=== PATIENT | female | born 1935 | race African-American/Black ===

== ENCOUNTER 2016-08-01 10:57 | Emergency (ER) | payer MEDICARE ==
[~2016-08-01] VITALS: Ht 157.5 cm; Wt 49.9 kg
[~2016-08-01 10:57] MED LIST: ACET1TAB30 PO; ACET325T21 PO; ACYC200C PO; ALEN70TA5 PO; ALIS300T PO; AMLO10TA4 PO; ASPI325T4 PO; ATOR40TA PO; BUDE10.2 IH; BUTA1CAP57 PO; CARI350T PO; CARV25TA PO; CHOL200044 PO; CLON0.1T PO; CLOR7.5T43 PO; FLUT16SP NS; HYDR-2666 PO; HYDR-2868 PO; LOSA100T2 PO; MAGN250T5 PO; PROAIR HFA8.5 GM INH; SITA100T PO; SPIR50TA PO; TRIA1TAB2 PO
--- NOTE | 2016-08-01 13:10 | PHYS DOC ---
Past Medical History Past Medical History: Asthma, Diabetes-Type II, High Cholesterol, Hypertension Past Surgical History: Hysterectomy, Other Additional Past Surgical Histo: carotid artery, cyst removed from left breast Alcohol Use: None Drug Use: None Adult General Chief Complaint Chief Complaint: LOWER BACK PAIN OR INJURY HPI HPI Patient is a 81 year old female who presents with complaint of low back pain. Patient states that her symptoms started after she attempted to lift a mattress 3 days ago at her home. Patient states that she felt a "tweaked" in her back upon lifting. Patient states that initially her pain was mild to moderate, however over the past 2-3 days her symptoms have progressed, resulting in 10 out of 10 pain currently in her low back. Patient states that she has remained ambulatory though she is only able to walk short distances in her home. The patient has taken Advil and Tylenol for her symptoms with minimal relief. Patient denies any weakness or numbness in her lower extremities. Patient states that the pain is sharp and worsens with movement. Patient denies any previous history of back injuries. Review of Systems Review of Systems Constitutional: Denies fever or chills [] Eyes: Denies change in visual acuity, redness, or eye pain [] HENT: Denies nasal congestion or sore throat [] Respiratory: Denies cough or shortness of breath [] Cardiovascular: Denies chest pain or edema [] GI: Denies abdominal pain, nausea, vomiting, bloody stools or diarrhea [] : Denies dysuria or hematuria [] Musculoskeletal: Back pain [] Integument: Denies rash or skin lesions [] Neurologic: Denies headache, focal weakness or sensory changes [] Endocrine: Denies polyuria or polydipsia [] Current Medications Current Medications Current Medications Medications (Trade) Dose Ordered Sig/[facility] Start Time Stop Time Status Last Admin Dose Admin Acetaminophen/ Hydrocodone Bitart (Lortab 5/325) 1 tab 1X ONCE 08/01/16 13:15 08/01/16 13:16 DC 08/01/16 13:42 1 TAB Allergies Allergies Allergies Coded Allergies Type Severity Reaction Last Updated Verified lisinopril Allergy Mild cough 10/18/13 Yes Physical Exam Physical Exam Constitutional: Alert, afebrile, appears in mild to moderate discomfort. [] HENT: Normocephalic, atraumatic, bilateral external ears normal, oropharynx moist, no oral exudates, nose normal. [] Eyes: PERRLA, EOMI, conjunctiva normal, no discharge. [] Neck: Normal range of motion, no tenderness, supple, no stridor. [] Cardiovascular:Heart rate regular rhythm, no murmur [] Lungs & Thorax: Bilateral breath sounds clear to auscultation [] Abdomen: Bowel sounds normal, soft, no tenderness, no masses, no pulsatile masses. [] Skin: Warm, dry, no erythema, no rash. [] Back: Lower lumbar midline tenderness to palpation, bilateral lower lumbar paraspinous muscle tenderness to palpation, negative straight leg test, no flank ecchymosis. [] Extremities: No tenderness, no cyanosis, no clubbing, ROM intact, no edema. [] Neurologic: Alert and oriented X 3, normal motor function, normal sensory function, no focal deficits noted. [] Current Patient Data Vital Signs Vital Signs Date Time Temp Pulse Resp B/P Pulse Ox O2 Delivery O2 Flow Rate FiO2 08/01/16 13:42 20 98 Room Air 08/01/16 13:38 62 170/67 08/01/16 12:08 98.5 98.5 Lab Values Laboratory Tests Test 08/01/16 13:00 Urine Collection Type Void Urine Color Yellow Urine Clarity Cloudy Urine pH 6.5 Urine Specific [place] 1.010 Urine Protein Negativemg/dL (NEG-TRACE) Urine Glucose (UA) 250mg/dL (NEG) Urine Ketones (Stick) Negativemg/dL (NEG) Urine Blood Negative (NEG) Urine Nitrite Negative (NEG) Urine Bilirubin Negative (NEG) Urine Urobilinogen Dipstick 0.2mg/dL (0.2 mg/dL) Urine Leukocyte Esterase Negative (NEG) Urine RBC 0/HPF (0-2) Urine WBC 0/HPF (0-4) Urine Squamous Epithelial Cells Mod/LPF Urine Bacteria 0/HPF (0-FEW) Urine Mucus Slight/LPF EKG EKG Not performed [] Radiology/Procedures Radiology/Procedures [facility] [address] [place] [address] IMAGING REPORT Signed PATIENT: DEENA ASHTON ACCOUNT: [id number] : 1935 LOCATION: ER AGE: 81 SEX: F EXAM STATUS: REG ER ORD. PHYSICIAN: ANNETTE ORR MD REASON: low back injury 2 days ago PROCEDURE: LUMBAR SPINE 2-3V Three-view lumbar spine radiographs 08/01/2016 Clinical history: Low back pain since injury 3 days ago while lifting a mattress. AP and 2 lateral digital radiographs of the lumbar spine were obtained. There is diffuse osteopenia of the visualized bony structures. Very mild S-shaped curvature of the thoracolumbar spine is seen. No fracture or subluxation lumbar vertebrae seen. Degenerative changes consisting of vertebral endplate sclerosis and minimal anterior vertebral body osteophyte formation are seen involving the lumbar disc spaces. Degenerative changes are seen involving the facet joints of the mid and lower lumbar spine. Extensive atherosclerotic calcification of the abdominal aorta and its branches is noted. A 1.5 cm rounded calcification overlies right upper quadrant of the abdomen which may reflect the calcified gallstone. Impression: Degenerative changes are seen in the lumbar spine as outlined above. No acute fracture or subluxation is seen. DICTATED and SIGNED BY: FERNIE DAN MD DATE: 08/01/16 1400 CC: ANNETTE ORR MD; ARETHA NEFF MD ~ [] Course & Med Decision Making Course & Med Decision Making Pertinent Labs and Imaging studies reviewed. (See chart for details) Patient was given Olar in the emergency department. Patient's x-rays were negative for acute fracture. The patient's symptoms are consistent with lower lumbar sprain versus lower lumbar muscle strain. The patient will continue on Olar. Recommended continued use of [id number] Advil one tablet every 6 hours. Advised not to use any additional Tylenol while taking Olar. Recommended follow-up in one week with Dr. Neff for reevaluation and recommended return to the emergency department for any worsening symptoms. Patient voiced understanding and in agreement with treatment plan. Dragon Disclaimer Dragon Disclaimer This electronic medical record was generated, in whole or in part, using a voice recognition dictation system. Departure Departure Impression: Primary Impression: Injury of low back Disposition: 01 HOME, SELF-CARE Condition: IMPROVED Referrals: ARETHA NEFF MD (PCP) Patient Instructions: Back Pain, Adult Additional Instructions: Follow-up with Dr. Neff in one week. Do not take any additional over-the- counter Tylenol while you are taking Olar for pain. You may take Advil one tablet every 6 hours as needed for pain. Return to the emergency department for any worsening symptoms. Scripts Hydrocodone/Apap 5-325 (Olar 5-325 Tablet)1 Each Tablet1 Tab PO Q6HRS PRN PAIN #15 TAB Prov:ANNETTE ORR MD 08/01/16 Problem Qualifiers Primary Impression: Injury of low back Encounter type: initial encounter Qualified Code: S39.92XA - Unspecified injury of lower back, initial encounter ANNETTE ORR MD Aug 01, 2016 13:10
[2016-08-01 13:30] LABS: BILIRUBIN,URINE NEGATIVE (NEG); GLUCOSE,URINE 250 mg/dL (NEG); NITRITE,URINE NEGATIVE (NEG); PH,URINE 6.5; PROTEIN,URINE NEGATIVE (NEG-TRACE); UROBILINOGEN,URINE 0.2 mg/dL (0.2 mg/dL)
[2016-08-01 13:40] LABS: BACTERIA,URINE 0 /HPF (0-FEW); RBC,URINE 0 /HPF (0-2); SQUAMOUS EPITHELIAL CELL,UR MOD /LPF; WBC,URINE 0 /HPF (0-4)
[2016-08-01] MEDS: HYDROCODONE/APAP 5/325MG TABLET. PO ONE (13:42)
--- NOTE | 2016-08-01 14:05 | RAD ---
Three-view lumbar spine radiographs 08/01/2016 Clinical history: Low back pain since injury 3 days ago while lifting a mattress. AP and 2 lateral digital radiographs of the lumbar spine were obtained. There is diffuse osteopenia of the visualized bony structures. Very mild S-shaped curvature of the thoracolumbar spine is seen. No fracture or subluxation lumbar vertebrae seen. Degenerative changes consisting of vertebral endplate sclerosis and minimal anterior vertebral body osteophyte formation are seen involving the lumbar disc spaces. Degenerative changes are seen involving the facet joints of the mid and lower lumbar spine. Extensive atherosclerotic calcification of the abdominal aorta and its branches is noted. A 1.5 cm rounded calcification overlies right upper quadrant of the abdomen which may reflect the calcified gallstone. Impression: Degenerative changes are seen in the lumbar spine as outlined above. No acute fracture or subluxation is seen.
[2016-08-01] MEDS ORDERED: HYDR-971 PO (14:57)
[2016-08-01 15:08] VITALS: BP 156/69
== END 2016-08-01 15:32 | disposition home or self-care (01) ==
LOC: ER 10:57
DX: S39.92XA Unspecified injury of lower back, initial encounter (principal); E11.9 Type 2 diabetes mellitus without complications; E78.00 Pure hypercholesterolemia, unspecified; I10 Essential (primary) hypertension; J45.909 Unspecified asthma, uncomplicated; Z90.710 Acquired absence of both cervix and uterus; Z88.8 Allergy status to other drugs, medicaments and biological substances; X58.XXXA Exposure to other specified factors, initial encounter; Y93.89 Activity, other specified; Y92.89 Other specified places as the place of occurrence of the external cause; Y99.8 Other external cause status
CPT/HCPCS: 72100; 81001; 99285-25

== ENCOUNTER 2016-08-11 20:45 | Emergency (ER) | payer MEDICARE ==
[~2016-08-11] VITALS: Ht 157.5 cm; Wt 49.9 kg
[~2016-08-11 20:45] MED LIST changes: +HYDR-971 PO
[2016-08-11 21:22] LABS: BILIRUBIN,URINE NEGATIVE (NEG); GLUCOSE,URINE 500 mg/dL (NEG); NITRITE,URINE NEGATIVE (NEG); PH,URINE 6.5; PROTEIN,URINE NEGATIVE (NEG-TRACE); UROBILINOGEN,URINE 0.2 mg/dL (0.2 mg/dL)
[2016-08-11 21:26] LABS: BASO # 0.1 x10^3/uL (0.0-0.2); BASO % 1 % (0-3); EOS % 6 % (0-3); HEMATOCRIT 33.7 % (36.0-47.0); HEMOGLOBIN 11.2 g/dL (12.0-15.5); LYMPH % 35 % (24-48); MEAN CORPUSCULAR HEMOGLOBIN 30 pg (25-35); MEAN CORPUSCULAR HGB CONC 33 g/dL (31-37); MEAN CORPUSCULAR VOLUME 91 fL (79-100); MONO % 8 % (0-9); NEUT % 50 % (31-73); PLATELET COUNT 144 x10^3/uL (140-400); RED BLOOD COUNT 3.69 x10^6/uL (3.50-5.40); RED CELL DISTRIBUTION WIDTH 13.6 % (11.5-14.5); WHITE BLOOD COUNT 5.6 x10^3/uL (4.0-11.0)
[2016-08-11 21:31] LABS: BACTERIA,URINE 0 /HPF (0-FEW); RBC,URINE OCC /HPF (0-2); SQUAMOUS EPITHELIAL CELL,UR OCC /LPF; WBC,URINE 0 /HPF (0-4)
[2016-08-11 21:50] LABS: ALBUMIN 3.9 g/dL (3.4-5.0); CALCIUM 9.9 mg/dL (8.5-10.1); CREATININE 1.1 mg/dL (0.6-1.0); DIRECT BILIRUBIN 0.1 mg/dL (0.0-0.2); GFR 57.4; POTASSIUM 3.5 mmol/L (3.5-5.1); TOTAL BILIRUBIN 0.3 mg/dL (0.2-1.0); TOTAL PROTEIN 7.8 g/dL (6.4-8.2)
--- NOTE | 2016-08-11 22:11 | PHYS DOC ---
Past Medical History Past Medical History: Asthma, Diabetes-Type II, High Cholesterol, Hypertension Past Surgical History: Hysterectomy, Other Additional Past Surgical Histo: carotid artery, cyst removed from left breast Alcohol Use: None Drug Use: None Adult General Chief Complaint Chief Complaint: HYPERGLYCEMIA HPI HPI 81-year-old female presenting to the emergency department today with generalized weakness intermittent confusion lightheadedness when she stands up. She felt like her blood sugar was low however when they checked it it was approximately 300. She denies chest pain shortness of breath nausea or vomiting. She denies polyuria or polydipsia. Her main complaint is generalized weakness. Nothing makes it worse or better. No specific timing. Nonradiating. The patient's family reports the patient is been taking frequent pain medications for her chronic hip pain and muscle relaxants. They report that at the initiation of her new muscle relaxant she began becoming more lightheaded and intermittently confused. Review of systems is negative for chest pain shortness of breath abdominal pain nausea vomiting diarrhea. She denies fevers or chills. All other review of systems is negative unless otherwise noted in history of present illness. Review of Systems Review of Systems SEE ABOVE. Allergies Allergies Allergies Coded Allergies Type Severity Reaction Last Updated Verified lisinopril Allergy Mild cough 10/18/13 Yes Physical Exam Physical Exam Constitutional: Well developed, well nourished, no acute distress, non-toxic appearance. HENT: Normocephalic, atraumatic, bilateral external ears normal, oropharynx moist, no oral exudates, nose normal. [] Eyes: PERRLA, EOMI, conjunctiva normal, no discharge. [] Neck: Normal range of motion, no tenderness, supple, no stridor. Cardiovascular:Heart rate regular rhythm, no murmur [] Lungs & Thorax: Bilateral breath sounds clear to auscultation Abdomen: Bowel sounds normal, soft, no tenderness, no masses, no pulsatile masses. [] Skin: Warm, dry, no erythema, no rash. Back: No tenderness, no CVA tenderness. [] Extremities: No tenderness, no cyanosis, no clubbing, ROM intact, no edema. [] Neurologic: Mental status: Awake oriented and alert x3 Cranial nerves: Extraocular movements intact, eyebrows michelle bilaterally smile symmetric, uvula elevation, shoulder shrug intact, tongue protrusion normal Sensation: equal and normal in all extremities Strength: 5/5 in upper and lower extremities bilaterally Psychologic: Affect normal, judgement normal, mood normal. [] Current Patient Data Vital Signs Vital Signs Date Time Temp Pulse Resp B/P Pulse Ox O2 Delivery O2 Flow Rate FiO2 08/11/16 22:12 64 16 143/65 99 Room Air 08/11/16 20:54 97.3 97.3 Lab Values Laboratory Tests Test 08/11/16 21:00 08/11/16 21:10 08/11/16 21:17 Urine Collection Type Unknown Urine Color Yellow Urine Clarity Clear Urine pH 6.5 Urine Specific [place] <=1.005 Urine Protein Negativemg/dL (NEG-TRACE) Urine Glucose (UA) 500mg/dL (NEG) Urine Ketones (Stick) Negativemg/dL (NEG) Urine Blood Negative (NEG) Urine Nitrite Negative (NEG) Urine Bilirubin Negative (NEG) Urine Urobilinogen Dipstick 0.2mg/dL (0.2 mg/dL) Urine Leukocyte Esterase Negative (NEG) Urine RBC Occ/HPF (0-2) Urine WBC 0/HPF (0-4) Urine Squamous Epithelial Cells Occ/LPF Urine Bacteria 0/HPF (0-FEW) White Blood Count 5.6x10^3/uL (4.0-11.0) Red Blood Count 3.69x10^6/uL (3.50-5.40) Hemoglobin 11.2g/dL (12.0-15.5) L Hematocrit 33.7% (36.0-47.0) L Mean Corpuscular Volume 91fL (79-100) Mean Corpuscular Hemoglobin 30pg (25-35) Mean Corpuscular Hemoglobin Concent 33g/dL (31-37) Red Cell Distribution Width 13.6% (11.5-14.5) Platelet Count 144x10^3/uL (140-400) Neutrophils (%) (Auto) 50% (31-73) Lymphocytes (%) (Auto) 35% (24-48) Monocytes (%) (Auto) 8% (0-9) Eosinophils (%) (Auto) 6% (0-3) H Basophils (%) (Auto) 1% (0-3) Neutrophils # (Auto) 2.8x10^3uL (1.8-7.7) Lymphocytes # (Auto) 2.0x10^3/uL (1.0-4.8) Monocytes # (Auto) 0.4x10^3/uL (0.0-1.1) Eosinophils # (Auto) 0.3x10^3/uL (0.0-0.7) Basophils # (Auto) 0.1x10^3/uL (0.0-0.2) Sodium Level 142mmol/L (136-145) Potassium Level 3.5mmol/L (3.5-5.1) Chloride Level 101mmol/L (98-107) Carbon Dioxide Level 33mmol/L (21-32) H Anion Gap 8 (6-14) Blood Urea Nitrogen 21mg/dL (7-20) H Creatinine 1.1mg/dL (0.6-1.0) H Estimated GFR (Cockcroft-Gault) 57.4 Glucose Level 284mg/dL (70-99) H Serum Osmolality 301mOsm/Kg (279-304) Lactic Acid Level 1.4mmol/L (0.4-2.0) Calcium Level 9.9mg/dL (8.5-10.1) Total Bilirubin 0.3mg/dL (0.2-1.0) Direct Bilirubin 0.1mg/dL (0.0-0.2) Aspartate Amino Transferase (AST) 28U/L (15-37) Alanine Aminotransferase (ALT) 28U/L (14-59) Alkaline Phosphatase 83U/L (46-116) Troponin I Quantitative < 0.017ng/mL (0.000-0.055) Total Protein 7.8g/dL (6.4-8.2) Albumin 3.9g/dL (3.4-5.0) Lipase 238U/L (73-393) Glucose (Fingerstick) 272mg/dL (70-99) H Laboratory Tests 08/11/16 21:10 Laboratory Tests 08/11/16 21:10 EKG EKG EKG shows sinus rhythm not suggestive of ischemia. [] Radiology/Procedures Radiology/Procedures Chest x-ray reviewed by myself shows no obvious infiltrate or pneumothorax present. No obvious acute cardiopulmonary process present.[] Course & Med Decision Making Course & Med Decision Making Pertinent Labs and Imaging studies reviewed. (See chart for details) [] 81-year-old female presenting to the emergency department today with generalized weakness. Triage vital signs afebrile normal heart rate.. Pertinent physical exam shows a pleasant elderly female without any focal deficits. Patient is oriented to person place and time. GCS 15. Nontender abdomen. Well- appearing. EKG obtained. Chest x-ray obtained. CBC shows mild anemia without leukocytosis. Urinalysis shows mild glucosuria not suggestive of infection. Chemistry panel shows hyperglycemia and minimal elevation in BUN and creatinine. CO2 elevated likely secondary to chronic CO2 retention. Otherwise unremarkable. The patient was subsequently discharged home to follow up with her primary care physician over the next 2-3 days. Recommended trying to use the lowest amount of pain and muscle relaxant medications as this could be iatrogenic from these medications. Patient family comfortable plan. Face-to- face discharge instructions given. Dragon Disclaimer Dragon Disclaimer This electronic medical record was generated, in whole or in part, using a voice recognition dictation system. Departure Departure Impression: Primary Impression: Lightheadedness Additional Impressions: Intermittent confusion Generalized weakness Disposition: 01 HOME, SELF-CARE Condition: STABLE Referrals: ARETHA NEFF MD (PCP) Patient Instructions: Weakness Additional Instructions: Thank you for allowing us to participate in your care today. Try to use the lowest effective dose of muscle relaxants and pain medication. Followup with your primary care physician in 2-3 days if your symptoms do not improve. If you do not have a primary care provider you can ask for a list of our primary care providers. Return to the emergency department you have any new or concerning findings. This should be evaluated by the primary care physician and any necessary consulting services for continued management within a few days after discharge. Return to emergency room if you have any new or concerning symptoms including but not limited to fever, chills, nausea, vomiting, intractable pain, any new rashes, chest pain, shortness of air, uncontrolled bleeding, difficulty breathing, and/or vision loss. Problem Qualifiers MARRY CHAUHAN MD Aug 11, 2016 22:11
[2016-08-11 23:00] VITALS: BP 139/63
--- NOTE | 2016-08-12 06:51 | EKG ---
[address] [place] [address] Test Date: 2016-08-11 Test Time: 22:25:12 Pat Name: DEENA ASHTON Department: Room: Gender: F Sock Drier: : 1935 Requested By: MARRY CHAUHAN Order Number: [id number] Reading MD: Cira Kolb Measurements Intervals [place] Rate: 67 P: 57 NC: 190 QRS: -23 QRSD: 80 T: 3 QT: 484 QTc: 515 Interpretive Statements SINUS RHYTHM LEFTWARD AXIS CONSIDER LEFT VENTRICULAR HYPERTROPHY PROLONGED QT ABNORMAL ECG RI6.01 Compared to ECG 03/11/2016 17:27:26 Prolonged QT interval now present Electronically Signed On 08-13-2016 20:11:39 CDT by Cira Kolb
--- NOTE | 2016-08-12 08:07 | RAD ---
Portable chest, 08/11/2016: History: Cough, shortness of breath Comparison is made to a study from 03/11/2016. The heart is at the upper limits of normal in size. There is calcific plaquing and tortuosity of the thoracic aorta. The pulmonary vascularity is normal. No pulmonary infiltrate is seen. There is no evidence of pleural fluid. There is a mild thoracic scoliosis with associated multilevel degenerative change. IMPRESSION: 1. Borderline cardiomegaly and aortic atherosclerosis. 2. No acute abnormality is detected.
== END 2016-08-11 23:10 | disposition home or self-care (01) ==
LOC: ER 20:45
DX: R53.1 Weakness (principal); R42 Dizziness and giddiness; R41.0 Disorientation, unspecified; J45.909 Unspecified asthma, uncomplicated; E11.9 Type 2 diabetes mellitus without complications; E78.00 Pure hypercholesterolemia, unspecified; I10 Essential (primary) hypertension; Z90.710 Acquired absence of both cervix and uterus; Z88.8 Allergy status to other drugs, medicaments and biological substances
CPT/HCPCS: 36415; 71010; 80048; 80076; 81001; 82947; 83605; 83690; 83930; 84484; 85027; 93005; 99285-25

== ENCOUNTER 2016-08-19 15:13 | Emergency (ER) | payer MEDICARE ==
[~2016-08-19] VITALS: Ht 157.5 cm; Wt 49.4 kg
--- NOTE | 2016-08-19 15:42 | RAD ---
CT of the head without contrast, 08/19/2016: History: Slurred speech Comparison is made to a study from 07/22/2014. The ventricles are within normal limits in size. There is no shift of the midline structures. There is no evidence of acute intracranial hemorrhage or mass effect. There is an unchanged lucency in the anterior aspect of the left basal ganglia compatible with an old infarct. There is a smaller old lucency in a similar location on the right. There are minimal deep white matter lucencies bilaterally compatible with chronic ischemic change. There is unchanged partial opacification of left sphenoid sinus. IMPRESSION: 1. Chronic findings as described above. 2. No acute intracranial abnormality is detected. PQRS Compliance Statement: One or more of the following individualized dose reduction techniques were utilized for this examination: 1. Automated exposure control 2. Adjustment of the mA and/or kV according to patient size 3. Use of iterative reconstruction technique
[2016-08-19 15:49] LABS: BASO % 1 % (0-3); EOS % 4 % (0-3); HEMATOCRIT 34.3 % (36.0-47.0); HEMOGLOBIN 11.7 g/dL (12.0-15.5); LYMPH # 2.2 x10^3/uL (1.0-4.8); LYMPH % 35 % (24-48); MEAN CORPUSCULAR HEMOGLOBIN 30 pg (25-35); MEAN CORPUSCULAR HGB CONC 34 g/dL (31-37); MEAN CORPUSCULAR VOLUME 89 fL (79-100); MONO % 6 % (0-9); NEUT % 55 % (31-73); PLATELET COUNT 170 x10^3/uL (140-400); RED BLOOD COUNT 3.84 x10^6/uL (3.50-5.40); RED CELL DISTRIBUTION WIDTH 13.8 % (11.5-14.5); WHITE BLOOD COUNT 6.3 x10^3/uL (4.0-11.0)
[2016-08-19 15:58] LABS: CALCIUM 9.9 mg/dL (8.5-10.1); CREATININE 1.1 mg/dL (0.6-1.0); GFR 57.4; POTASSIUM 4.2 mmol/L (3.5-5.1)
[2016-08-19 16:04] LABS: ALBUMIN/GLOBULIN RATIO 1.1 (1.0-1.7); TOTAL BILIRUBIN 0.4 mg/dL (0.2-1.0); TOTAL PROTEIN 7.7 g/dL (6.4-8.2)
[2016-08-19 16:14] LABS: INR 1.2 (0.8-1.1); PROTHROMBIN TIME PATIENT 14.4 SEC (11.7-14.0)
--- NOTE | 2016-08-19 16:15 | ED.ADGEN ---
Past Medical History Past Medical History: Asthma, Diabetes-Type II, High Cholesterol, Hypertension Past Surgical History: Hysterectomy, Other Additional Past Surgical Histo: carotid artery, cyst removed from left breast Alcohol Use: None Drug Use: None Adult General Chief Complaint Chief Complaint: NEURO SYMPTOMS/DEFICITS HPI HPI Patient is a 81 year old woman, history of diabetes mellitus, hypertension, hypercholesterolemia, left-sided pain, for which she is on muscle relaxers, reasons emergency department with her family with report of altered mental status, slurred speech. Patient's great-granddaughter's at bedside, states she was talking to the patient on the phone, noted she is having slowed response and . She came went to see the patient on her home, the patient was taking a nap, and when she awoke was still drowsy and off balance. She states that the patient is now told her that she took a muscle relaxer approximately an hour before calling. Patient states she's been experiencing pain in her left back, buttock rating down her leg, for which she did take a muscle relaxer at approximately 11:00 or noon. She did sleep, and then woke up around 1:00 and was still feeling some pain, more feeling drowsy. Patient states she's taken a muscle relaxer before but usually takes it at nighttime, has not previous experience these particular type symptoms. Patient is alert and oriented 4, complaining of feeling generally tired, and is slow to respond, although she is moving all extremities and has no focal neuro deficits. She denies any chest pain or shortness breath, any nausea or vomiting, any focal weakness numbness or tingling, any GI complaints, states that she has frequency of urination always, but no urgency or dysuria. Review of Systems Review of Systems Constitutional: Denies fever or chills. [] Eyes: Denies change in visual acuity. [] HENT: Denies nasal congestion or sore throat. [] Respiratory: Denies cough or shortness of breath. [] Cardiovascular: Denies chest pain or edema. [] GI: Denies abdominal pain, nausea, vomiting, bloody stools or diarrhea. [] : Denies dysuria. [] Musculoskeletal: Left-sided back pain, pain in the hip and leg which is constant for the past several weeks. Has previously been evaluated. Integument: Denies rash. [] Neurologic: Denies headache, focal weakness or sensory changes. Slurred speech. Slow to respond. Endocrine: Denies polyuria or polydipsia. [] Lymphatic: Denies swollen glands. [] Psychiatric: Denies depression or anxiety. [] Allergies Allergies Allergies Coded Allergies Type Severity Reaction Last Updated Verified lisinopril Allergy Mild cough 10/18/13 Yes Physical Exam Physical Exam Constitutional: Well developed, well nourished, no acute distress, non-toxic appearance. [] HENT: Normocephalic, atraumatic, bilateral external ears normal, oropharynx moist, no oral exudates, nose normal. [] Eyes: PERRLA, EOMI, conjunctiva normal, no discharge. [] Neck: Normal range of motion, no tenderness, supple, no stridor. [] Cardiovascular:Heart rate regular rhythm, no murmur, S1, S2, rubs or gallops. Mildly bradycardic., No wheezing, rhonchi, rales. No chest wall crepitus or tenderness. [] Lungs & Thorax: Bilateral breath sounds clear to auscultation [] Abdomen: Bowel sounds normal, soft, no tenderness, no masses, no pulsatile masses. [] Skin: Warm, dry, no erythema, no rash. [] Back: No tenderness, no CVA tenderness. [] Extremities: No tenderness, no cyanosis, no clubbing, ROM intact, no edema. [] Neurologic: Alert and oriented X 3, normal motor function, normal sensory function, no focal deficits noted. 5 out of 5 strength in all extremities, sensation intact, normal neuro examination although patient is slightly slow to respond, speech is intact. [] Psychologic: Affect normal, judgement normal, mood normal. [] Current Patient Data Vital Signs Vital Signs Date Time Temp Pulse Resp B/P Pulse Ox O2 Delivery O2 Flow Rate FiO2 08/19/16 15:22 97.3 62 14 166/75 98 Room Air 97.3 Lab Values Laboratory Tests Test 08/19/16 15:35 08/19/16 16:26 White Blood Count 6.3x10^3/uL (4.0-11.0) Red Blood Count 3.84x10^6/uL (3.50-5.40) Hemoglobin 11.7g/dL (12.0-15.5) L Hematocrit 34.3% (36.0-47.0) L Mean Corpuscular Volume 89fL (79-100) Mean Corpuscular Hemoglobin 30pg (25-35) Mean Corpuscular Hemoglobin Concent 34g/dL (31-37) Red Cell Distribution Width 13.8% (11.5-14.5) Platelet Count 170x10^3/uL (140-400) Neutrophils (%) (Auto) 55% (31-73) Lymphocytes (%) (Auto) 35% (24-48) Monocytes (%) (Auto) 6% (0-9) Eosinophils (%) (Auto) 4% (0-3) H Basophils (%) (Auto) 1% (0-3) Neutrophils # (Auto) 3.4x10^3uL (1.8-7.7) Lymphocytes # (Auto) 2.2x10^3/uL (1.0-4.8) Monocytes # (Auto) 0.4x10^3/uL (0.0-1.1) Eosinophils # (Auto) 0.2x10^3/uL (0.0-0.7) Basophils # (Auto) 0.0x10^3/uL (0.0-0.2) Prothrombin Time 14.4SEC (11.7-14.0) H Prothrombin Time INR 1.2 (0.8-1.1) H PTT 33SEC (24-38) Sodium Level 136mmol/L (136-145) Potassium Level 4.2mmol/L (3.5-5.1) Chloride Level 100mmol/L (98-107) Carbon Dioxide Level 30mmol/L (21-32) Anion Gap 6 (6-14) Blood Urea Nitrogen 20mg/dL (7-20) Creatinine 1.1mg/dL (0.6-1.0) H Estimated GFR (Cockcroft-Gault) 57.4 BUN/Creatinine Ratio 18 (6-20) Glucose Level 229mg/dL (70-99) H Calcium Level 9.9mg/dL (8.5-10.1) Total Bilirubin 0.4mg/dL (0.2-1.0) Aspartate Amino Transferase (AST) 23U/L (15-37) Alanine Aminotransferase (ALT) 27U/L (14-59) Alkaline Phosphatase 79U/L (46-116) Troponin I Quantitative < 0.017ng/mL (0.000-0.055) PK-Puk-G-Type Natriuretic Peptide 200pg/mL (0-449) Total Protein 7.7g/dL (6.4-8.2) Albumin 4.0g/dL (3.4-5.0) Albumin/Globulin Ratio 1.1 (1.0-1.7) Urine Collection Type Void Urine Color Yellow Urine Clarity Clear Urine pH 7.5 Urine Specific [place] <=1.005 Urine Protein Negativemg/dL (NEG-TRACE) Urine Glucose (UA) Negativemg/dL (NEG) Urine Ketones (Stick) Negativemg/dL (NEG) Urine Blood Negative (NEG) Urine Nitrite Negative (NEG) Urine Bilirubin Negative (NEG) Urine Urobilinogen Dipstick 0.2mg/dL (0.2 mg/dL) Urine Leukocyte Esterase Negative (NEG) Urine RBC 0/HPF (0-2) Urine WBC 0/HPF (0-4) Urine Squamous Epithelial Cells Few/LPF Urine Bacteria 0/HPF (0-FEW) Urine Opiates Screen Neg (NEG) Urine Methadone Screen Neg (NEG) Urine Barbiturates Pos (NEG) Urine Phencyclidine Screen Neg (NEG) Urine Amphetamine/Methamphetamine Neg (NEG) Urine Benzodiazepines Screen Pos (NEG) Urine Cocaine Screen Neg (NEG) Urine Cannabinoids Screen Neg (NEG) Urine Ethyl Alcohol Neg (NEG) Laboratory Tests 08/19/16 15:35 Laboratory Tests 08/19/16 15:35 EKG EKG EC: Sinus rhythm, heart rate 56 beats minute, occasional PVCs noted, left axis deviation with left internal hypertrophy, QTC of 462, AK 180, QRS 78, abnormal ECG, does not meet STEMI criteria. As interpreted by me. [] Radiology/Procedures Radiology/Procedures [] [facility] [address] [facility] [place], [place] [id number] IMAGING REPORT Signed PATIENT: DEENA ASHTON ACCOUNT: [id number] : 1935 LOCATION: ER AGE: 81 SEX: F EXAM STATUS: PRE ER ORD. PHYSICIAN: Jody SCOTT MD REASON: slurred speech PROCEDURE: HEAD WO CONTRAST CT of the head without contrast, 08/19/2016: History: Slurred speech Comparison is made to a study from 07/22/2014. The ventricles are within normal limits in size. There is no shift of the midline structures. There is no evidence of acute intracranial hemorrhage or mass effect. There is an unchanged lucency in the anterior aspect of the left basal ganglia compatible with an old infarct. There is a smaller old lucency in a similar location on the right. There are minimal deep white matter lucencies bilaterally compatible with chronic ischemic change. There is unchanged partial opacification of left sphenoid sinus. IMPRESSION: 1. Chronic findings as described above. 2. No acute intracranial abnormality is detected. PQRS Compliance Statement: One or more of the following individualized dose reduction techniques were utilized for this examination: 1. Automated exposure control 2. Adjustment of the mA and/or kV according to patient size 3. Use of iterative reconstruction technique DICTATED and SIGNED BY: TOM FELIZ MD DATE: 08/19/16 1534 CC: JOHN GOLDEN DO; ARETHA NEFF MD; Jody SCOTT MD ~ Course & Med Decision Making Course & Med Decision Making Pertinent Labs and Imaging studies reviewed. (See chart for details) Patient has history of degenerative changes of lumbar spine, symptoms that she is describing are consistent with sciatica, and appears the patient does have a diagnosis made previously. Based on report of patient and family. Patient is receiving muscle relaxers and pain medication, which could've contributed to stay which she is currently experiencing. Head CT, x-ray, laboratory studies do not reveal any evidence of acutely concerning findings, UDS was positive for benzo states the pains and barbiturates, consistent with the patient's reported medication list. On reevaluation, patient's drowsy speech has resolved, she states she is feeling better. She did complain of pain in her right ear, states she is experiencing seasonal allergy type symptoms. Patient states she is feeling much better at this time, and like to go home. We did and laboratory trial in the emergency department, patient's heart rate in the 60s, oxygen saturation in the upper 90s, patient ambulating without any difficulty in the ED. I did speak to her primary care provider Dr. Neff. She is familiar with patient, and requests the patient's muscle relaxant be discontinued as the patient is taking benzodiazepines and barbiturates, which she has been taking for some time. As patient is ambulatory without difficulty, and stated that she would like to go home, at this time without any concerning findings identified, Dr. Neff is agreeable to plan of the patient be discharged and return to the ED if any concerning symptoms develop. I did discuss this with patient and family at bedside, including offering admission pertaining observation she has any concerns. Patient denies a concerns at this time, will follow medication recommendations, patient's family to stay with her tonight, they will return to the ED if any new or concerning symptoms develop, and will follow-up with Dr. Neff as discussed. Patient discharged home in stable condition with family the plan as above. Dragon Disclaimer Dragon Disclaimer This electronic medical record was generated, in whole or in part, using a voice recognition dictation system. Departure Impression: Primary Impression: Generalized weakness Additional Impression: Medication adverse effect Disposition: 01 HOME, SELF-CARE Condition: IMPROVED Problem Qualifiers JOHN GOLDEN DO Aug 19, 2016 16:15
--- NOTE | 2016-08-19 16:21 | EKG ---
[facility] [address] [place] [address] Test Date: 2016-08-19 Test Time: 15:43:58 Pat Name: DEENA ASHTON Department: Room: Gender: F Diagnostic Assistant: : 1935 Requested By: JOHN GOLDEN Order Number: [id number] Reading MD: Measurements Intervals [place] Rate: 56 P: 57 LA: 180 QRS: -21 QRSD: 78 T: 0 QT: 476 QTc: 462 Interpretive Statements SINUS RHYTHM INTERPOLATED VENTRICULAR PREMATURE COMPLEX(ES) LEFTWARD AXIS CONSIDER LEFT VENTRICULAR HYPERTROPHY ABNORMAL ECG RI6.01 No previous ECG available for comparison
[2016-08-19 16:37] LABS: BILIRUBIN,URINE NEGATIVE (NEG); GLUCOSE,URINE NEGATIVE (NEG); NITRITE,URINE NEGATIVE (NEG); PH,URINE 7.5; PROTEIN,URINE NEGATIVE (NEG-TRACE); UROBILINOGEN,URINE 0.2 mg/dL (0.2 mg/dL)
[2016-08-19 16:44] LABS: BARBITURATES POS (NEG); BENZODIAZEPINES POS (NEG); CANNABINOIDS NEG (NEG); COCAINE NEG (NEG); ETHANOL, URINE NEG (NEG); METHADONE NEG (NEG); OPIATES NEG (NEG); PHENCYCLIDINE NEG (NEG)
[2016-08-19 17:04] LABS: BACTERIA,URINE 0 /HPF (0-FEW); RBC,URINE 0 /HPF (0-2); SQUAMOUS EPITHELIAL CELL,UR FEW /LPF; WBC,URINE 0 /HPF (0-4)
--- NOTE | 2016-08-19 17:17 | RAD ---
Portable chest, 08/19/2016: History: Altered mental status Comparison is made to a study from 08/11/2016. The heart is at the upper limits of normal in size. There is calcific plaquing and tortuosity of the thoracic aorta. The pulmonary vascularity is normal. No pulmonary infiltrates are seen. There is no evidence of pleural fluid. IMPRESSION: 1. Borderline cardiomegaly and aortic atherosclerosis. 2. No acute cardiopulmonary abnormality is detected.
[2016-08-19 18:30] VITALS: BP 164/70
== END 2016-08-19 19:25 | disposition home or self-care (01) ==
LOC: ER 16:06
DX: R53.1 Weakness (principal); R41.82 Altered mental status, unspecified; R47.81 Slurred speech; T48.205A Adverse effect of unspecified drugs acting on muscles, initial encounter; M25.552 Pain in left hip; M54.89 Other dorsalgia; J45.909 Unspecified asthma, uncomplicated; E11.9 Type 2 diabetes mellitus without complications; E78.00 Pure hypercholesterolemia, unspecified; I10 Essential (primary) hypertension; Z88.8 Allergy status to other drugs, medicaments and biological substances; Y92.89 Other specified places as the place of occurrence of the external cause
CPT/HCPCS: 36415; 70450; 71010; 80053; 80305; 80320; 81001; 83880; 84484; 85027; 85610; 85730; 93005; G0481; 99285-25

== ENCOUNTER 2016-11-25 12:00 | Emergency (ER) | payer MEDICARE ==
[~2016-11-25] VITALS: Ht 157.5 cm; Wt 49.0 kg
[~2016-11-25 12:00] MED LIST changes: -ASPI325T4 PO; +ASPI325T8 PO; -HYDR-2666 PO; +HYDR-2758 PO; +MAGN250T10 PO; -MAGN250T5 PO
--- NOTE | 2016-11-25 12:38 | PHYS DOC ---
Past Medical History Past Medical History: Asthma, Diabetes-Type II, High Cholesterol, Hypertension Past Surgical History: Hysterectomy, Other Additional Past Surgical Histo: carotid artery, cyst removed from left breast Alcohol Use: None Drug Use: None Adult General Chief Complaint Chief Complaint: FLANK PAIN [facility] HPI Patient is a 81 year old -[place] female who presents with right lower quadrant abdominal pain. She states his been going on for about a days as a nagging type of pain. She states sometimes it goes away completely. She is occasionally taking Advil to make it feel better. She states she's been having some hard stools but had a small bowel movement this morning. She denies any dysuria. She denies any fevers chills nausea or vomiting. She was seen by her primary care physician today who wanted to be evaluated in the emergency department. Review of Systems Review of Systems Constitutional: Denies fever or chills [] Eyes: Denies change in visual acuity, redness, or eye pain [] HENT: Denies nasal congestion or sore throat [] Respiratory: Denies cough or shortness of breath [] Cardiovascular: No additional information not addressed in HPI [] GI: Denies nausea, vomiting, bloody stools or diarrhea positive for abdominal pain, : Denies dysuria or hematuria [] Musculoskeletal: Denies back pain or joint pain [] Integument: Denies rash or skin lesions [] Neurologic: Denies headache, focal weakness or sensory changes [] Endocrine: Denies polyuria or polydipsia [] Current Medications Current Medications Current Medications Medications (Trade) Dose Ordered Sig/Sai Start Time Stop Time Status Last Admin Dose Admin Info (Do NOT chart on this entry -- for MONITORING) 1 each PRN DAILY PRN 11/25/16 13:45 11/27/16 13:44 Iohexol (Omnipaque 300 Mg/ml) 60 ml 1X ONCE 11/25/16 13:30 11/25/16 13:34 DC 11/25/16 13:54 60 ML Allergies Allergies Allergies Coded Allergies Type Severity Reaction Last Updated Verified lisinopril Allergy Mild cough 10/18/13 Yes Physical Exam Physical Exam Constitutional: Well developed, well nourished, no acute distress, non-toxic appearance. [] HENT: Normocephalic, atraumatic, bilateral external ears normal, oropharynx moist, no oral exudates, nose normal. [] Eyes: PERRLA, EOMI, conjunctiva normal, no discharge. [] Neck: Normal range of motion, no tenderness, supple, no stridor. [] Cardiovascular:Heart rate regular rhythm, no murmur [] Lungs & Thorax: Bilateral breath sounds clear to auscultation [] Abdomen: Bowel sounds high-pitched, soft, mild tenderness palpation the right lower quadrant, no masses, no pulsatile masses. [] Skin: Warm, dry, no erythema, no rash. [] Back: No tenderness, no CVA tenderness. [] Extremities: No tenderness, no cyanosis, no clubbing, ROM intact, no edema. [] Neurologic: Alert and oriented X 3, normal motor function, normal sensory function, no focal deficits noted. [] Psychologic: Affect normal, judgement normal, mood normal. [] Current Patient Data Vital Signs Vital Signs Date Time Temp Pulse Resp B/P (MAP) Pulse Ox O2 Delivery O2 Flow Rate FiO2 11/25/16 12:08 98.3 64 18 192/74 (113) 98 Room Air 98.3 Lab Values Laboratory Tests Test 11/25/16 12:20 11/25/16 12:45 Urine Collection Type Void Urine Color Yellow Urine Clarity Clear Urine pH 7.5 Urine Specific [place] <=1.005 Urine Protein Negative mg/dL (NEG-TRACE) Urine Glucose (UA) Negative mg/dL (NEG) Urine Ketones (Stick) Negative mg/dL (NEG) Urine Blood Negative (NEG) Urine Nitrite Negative (NEG) Urine Bilirubin Negative (NEG) Urine Urobilinogen Dipstick 0.2 mg/dL (0.2 mg/dL) Urine Leukocyte Esterase Trace (NEG) Urine RBC Occ /HPF (0-2) Urine WBC Occ /HPF (0-4) Urine Squamous Epithelial Cells Few /LPF Urine Bacteria Few /HPF (0-FEW) White Blood Count 6.2 x10^3/uL (4.0-11.0) Red Blood Count 4.03 x10^6/uL (3.50-5.40) Hemoglobin 12.6 g/dL (12.0-15.5) Hematocrit 37.7 % (36.0-47.0) Mean Corpuscular Volume 93 fL (79-100) Mean Corpuscular Hemoglobin 31 pg (25-35) Mean Corpuscular Hemoglobin Concent 34 g/dL (31-37) Red Cell Distribution Width 14.1 % (11.5-14.5) Platelet Count 169 x10^3/uL (140-400) Neutrophils (%) (Auto) 48 % (31-73) Lymphocytes (%) (Auto) 38 % (24-48) Monocytes (%) (Auto) 6 % (0-9) Eosinophils (%) (Auto) 7 % (0-3) H Basophils (%) (Auto) 1 % (0-3) Neutrophils # (Auto) 2.9 x10^3uL (1.8-7.7) Lymphocytes # (Auto) 2.3 x10^3/uL (1.0-4.8) Monocytes # (Auto) 0.4 x10^3/uL (0.0-1.1) Eosinophils # (Auto) 0.4 x10^3/uL (0.0-0.7) Basophils # (Auto) 0.1 x10^3/uL (0.0-0.2) Prothrombin Time 13.7 SEC (11.7-14.0) Prothrombin Time INR 1.1 (0.8-1.1) Sodium Level 143 mmol/L (136-145) Potassium Level 3.9 mmol/L (3.5-5.1) Chloride Level 103 mmol/L (98-107) Carbon Dioxide Level 34 mmol/L (21-32) H Anion Gap 6 (6-14) Blood Urea Nitrogen 17 mg/dL (7-20) Creatinine 1.1 mg/dL (0.6-1.0) H Estimated GFR (Cockcroft-Gault) 57.4 Glucose Level 124 mg/dL (70-99) H Calcium Level 10.4 mg/dL (8.5-10.1) H Magnesium Level 2.5 mg/dL (1.8-2.4) H Total Bilirubin 0.3 mg/dL (0.2-1.0) Direct Bilirubin 0.1 mg/dL (0.0-0.2) Aspartate Amino Transferase (AST) 26 U/L (15-37) Alanine Aminotransferase (ALT) 31 U/L (14-59) Alkaline Phosphatase 91 U/L (46-116) Creatine Kinase 129 U/L (26-192) Creatine Kinase MB (Mass) 0.9 ng/mL (0.0-3.6) Creatine Kinase MB Relative Index 0.7 % (0-4) Troponin I Quantitative < 0.017 ng/mL (0.000-0.055) IT-Ist-R-Type Natriuretic Peptide 154 pg/mL (0-449) Total Protein 8.4 g/dL (6.4-8.2) H Albumin 4.3 g/dL (3.4-5.0) Lipase 173 U/L (73-393) Thyroid Stimulating Hormone (TSH) 1.315 uIU/mL (0.358-3.74) Laboratory Tests 11/25/16 12:45 Laboratory Tests 11/25/16 12:45 EKG EKG EKG shows sinus rhythm with rate of [address] elevations, T-wave inversions noted in lead 3, left axis deviation, QTC 420 ms, as interpreted by me. Radiology/Procedures Radiology/Procedures [facility] [address] [place] [address] IMAGING REPORT Signed PATIENT: DEENA ASHTON ACCOUNT: [id number] : 1935 LOCATION: ER AGE: 81 SEX: F EXAM STATUS: PRE ER ORD. PHYSICIAN: CLAUDIA CESAR MD REASON: abd pain PROCEDURE: ACUTE ABDOMEN SERIES Indication: Abdominal pain. Time of exam 12:41 PM The heart size is stable. The lungs are clear. No free air is identified. The bowel gas pattern is nonobstructed. Impression: No acute feature is detected. DICTATED and SIGNED BY: RISHABH OCHOA MD DATE: 11/25/16 1257 CC: CLAUDIA CESAR MD; ARETHA NEFF MD ~ [facility] [address] [place], [place] [id number] IMAGING REPORT Signed PATIENT: DEENA ASHTON ACCOUNT: [id number] : 1935 LOCATION: ER AGE: 81 SEX: F EXAM STATUS: REG ER ORD. PHYSICIAN: CLAUDIA CESAR MD REASON: abd pain PROCEDURE: CT ABD PELV W/ IV CONTRST ONLY Indication: Abdominal pain. Axial imaging through the abdomen and pelvis was performed after the administration of intravenous contrast. Correlation is made with prior CT from 03/11/2016. Imaging through the lung bases again demonstrates a tiny nodule in the posterior lateral right lower lobe, stable when compared with prior exam. No new mass is detected. No discrete liver mass is detected. The gallbladder is unremarkable. The extra hepatic bile duct remains prominent, similar to prior study. Mild prominence of the pancreatic duct is also similar to prior study. The spleen is unremarkable. No adrenal mass is identified. The right kidney does contain a low-density mass posteriorly, consistent with a cyst. This is stable. No calculi are seen. The aorta is heavily calcified but nonaneurysmal. No definite central retroperitoneal or mesenteric lymphadenopathy is seen. The small and large bowel loops are normal caliber. There is no ascites. The bladder is unremarkable. No pelvic lymphadenopathy is detected. Impression: Stable CT of the abdomen and pelvis when compared with exam from 03/11/2016. No acute feature is detected. DICTATED and SIGNED BY: RISHABH OCHOA MD DATE: 11/25/16 1424 CC: CLAUDIA CESAR MD; ARETHA NEFF MD ~ Impressions: Abdominal pain hypercalcemia Course & Med Decision Making Course & Med Decision Making Pertinent Labs and Imaging studies reviewed. (See chart for details) CT scan, labs do not show any acute abnormalities other than slightly elevated calcium level. Spoke with Dr. Neff's office with the nurse practitioner saw her today and requested that she be followed up early next week with repeat calcium levels. Patient might need to be seen by endocrinology if this is a thyroid or malignancy issue. Since her CT scan doesn't show any acute abnormalities this could be secondary to constipation so we will recommend over- the-counter mag citrate 1. Return precautions given the good patient and her daughter are agreeable to the plan and they're being discharged in stable condition this time. Dragon Disclaimer Dragon Disclaimer This electronic medical record was generated, in whole or in part, using a voice recognition dictation system. Departure Departure Impression: Primary Impression: Abdominal pain Disposition: 01 HOME, SELF-CARE Condition: STABLE Referrals: ARETHA NEFF MD (PCP) Patient Instructions: Abdominal Pain Additional Instructions: You were seen today for your abdominal pain. The CAT scan did not show any acute abnormalities of your stomach. Your being discharged home. You can try use mag citrate, that you can purchase [id number] to help with her constipation. Follow-up with Dr. Neff's office early next week as your calcium level is slightly elevated. Return back to ER for severe abdominal pains, fevers, uncontrolled nausea vomiting or other concerns. Problem Qualifiers Primary Impression: Abdominal pain Abdominal location: right lower quadrant Qualified Codes: R10.31 - Right lower quadrant pain CLAUDIA CESAR MD Nov 25, 2016 12:38
[2016-11-25 12:47] LABS: BILIRUBIN,URINE NEGATIVE (NEG); GLUCOSE,URINE NEGATIVE (NEG); NITRITE,URINE NEGATIVE (NEG); PH,URINE 7.5; PROTEIN,URINE NEGATIVE (NEG-TRACE); UROBILINOGEN,URINE 0.2 mg/dL (0.2 mg/dL)
[2016-11-25 12:59] LABS: SQUAMOUS EPITHELIAL CELL,UR FEW /LPF
[2016-11-25 13:00] LABS: RBC,URINE OCC /HPF (0-2); WBC,URINE OCC /HPF (0-4)
--- NOTE | 2016-11-25 13:00 | RAD ---
Indication: Abdominal pain. Time of exam 12:41 PM The heart size is stable. The lungs are clear. No free air is identified. The bowel gas pattern is nonobstructed. Impression: No acute feature is detected.
[2016-11-25 13:01] LABS: BACTERIA,URINE FEW /HPF (0-FEW)
[2016-11-25 13:04] LABS: BASO # 0.1 x10^3/uL (0.0-0.2); BASO % 1 % (0-3); EOS % 7 % (0-3); HEMATOCRIT 37.7 % (36.0-47.0); HEMOGLOBIN 12.6 g/dL (12.0-15.5); LYMPH # 2.3 x10^3/uL (1.0-4.8); LYMPH % 38 % (24-48); MEAN CORPUSCULAR HEMOGLOBIN 31 pg (25-35); MEAN CORPUSCULAR HGB CONC 34 g/dL (31-37); MEAN CORPUSCULAR VOLUME 93 fL (79-100); MONO % 6 % (0-9); NEUT % 48 % (31-73); PLATELET COUNT 169 x10^3/uL (140-400); RED BLOOD COUNT 4.03 x10^6/uL (3.50-5.40); RED CELL DISTRIBUTION WIDTH 14.1 % (11.5-14.5); WHITE BLOOD COUNT 6.2 x10^3/uL (4.0-11.0)
[2016-11-25 13:13] LABS: INR 1.1 (0.8-1.1); PROTHROMBIN TIME PATIENT 13.7 SEC (11.7-14.0)
[2016-11-25 13:17] LABS: CALCIUM 10.4 mg/dL (8.5-10.1); CREATININE 1.1 mg/dL (0.6-1.0); GFR 57.4; POTASSIUM 3.9 mmol/L (3.5-5.1)
[2016-11-25 13:23] LABS: ALBUMIN 4.3 g/dL (3.4-5.0); DIRECT BILIRUBIN 0.1 mg/dL (0.0-0.2); MAGNESIUM 2.5 mg/dL (1.8-2.4); TOTAL BILIRUBIN 0.3 mg/dL (0.2-1.0); TOTAL PROTEIN 8.4 g/dL (6.4-8.2)
[2016-11-25 13:30] LABS: CKMB MASS 0.9 ng/mL (0.0-3.6)
[2016-11-25] MEDS ORDERED: IOHEXOL 300 MG/ML 75 ML VIAL IV ONE (13:30)
[2016-11-25] MEDS ORDERED: CONTRAST GIVEN MC PRN (13:45)
--- NOTE | 2016-11-25 13:57 | EKG ---
[facility] [address] [place] [address] Test Date: 2016-11-25 Test Time: 12:26:54 Pat Name: DEENA ASHTON Department: Room: Gender: F Labeling Specialist: : 1935 Requested By: CLAUDIA CESAR Order Number: [id number] Reading MD: Cira Kolb Measurements Intervals [place] Rate: 58 P: 62 LA: 168 QRS: -20 QRSD: 76 T: 10 QT: 432 QTc: 428 Interpretive Statements SINUS RHYTHM NORMAL ECG Electronically Signed On 11-26-2016 14:21:47 CDT by Ciar Kolb
--- NOTE | 2016-11-25 14:33 | RAD ---
Indication: Abdominal pain. Axial imaging through the abdomen and pelvis was performed after the administration of intravenous contrast. Correlation is made with prior CT from 03/11/2016. Imaging through the lung bases again demonstrates a tiny nodule in the posterior lateral right lower lobe, stable when compared with prior exam. No new mass is detected. No discrete liver mass is detected. The gallbladder is unremarkable. The extra hepatic bile duct remains prominent, similar to prior study. Mild prominence of the pancreatic duct is also similar to prior study. The spleen is unremarkable. No adrenal mass is identified. The right kidney does contain a low-density mass posteriorly, consistent with a cyst. This is stable. No calculi are seen. The aorta is heavily calcified but nonaneurysmal. No definite central retroperitoneal or mesenteric lymphadenopathy is seen. The small and large bowel loops are normal caliber. There is no ascites. The bladder is unremarkable. No pelvic lymphadenopathy is detected. Impression: Stable CT of the abdomen and pelvis when compared with exam from 03/11/2016. No acute feature is detected.
[2016-11-25 14:45] VITALS: BP 139/77
== END 2016-11-25 15:12 | disposition home or self-care (01) ==
LOC: ER 12:00
DX: R10.31 Right lower quadrant pain (principal); E83.52 Hypercalcemia; E11.9 Type 2 diabetes mellitus without complications; E78.00 Pure hypercholesterolemia, unspecified; I10 Essential (primary) hypertension; J45.909 Unspecified asthma, uncomplicated; Z90.710 Acquired absence of both cervix and uterus; Z88.8 Allergy status to other drugs, medicaments and biological substances
CPT/HCPCS: 36415; 74022; 74177; 80048; 80076; 81001; 82553; 83690; 83735; 83880; 84443; 84484; 85027; 85610; 87086; 93005; 99285; Q9967

== ENCOUNTER → 2017-01-10 | Outpatient (CLI) | payer BC, MEDICARE ==
--- NOTE | 2017-01-10 15:07 | RAD ---
DATE: 01/10/2017 EXAM: DIGITAL SCREEN BILAT W/CAD HISTORY: Asymptomatic screening mammogram COMPARISON: Prior mammograms from 01/04/2016, 12/31/2014, 12/04/2013 This study was interpreted with the benefit of Computerized Aided Detection (CAD). The breast parenchyma shows scattered fibroglandular densities. Breast parenchyma level B. FINDINGS: Bilateral CC and MLO views of the breasts were performed. Right breast: There are no suspicious microcalcifications, masses or areas of architectural distortion. Left breast: There are no suspicious microcalcifications, masses or areas of architectural distortion. Findings are stable from the prior mammogram. IMPRESSION: Negative bilateral mammogram. Recommend annual screening mammography. BI-RADS CATEGORY: 1 NEGATIVE RECOMMENDED FOLLOW-UP: 12M 12 MONTH FOLLOW-UP PQRS compliance statement: Patient information was entered into a reminder system with a target due date 01/10/2018 for the next mammogram. Mammography is a sensitive method for finding small breast cancers, but it does not detect them all and is not a substitute for careful clinical examination. A negative mammogram does not negate a clinically suspicious finding and should not result in delay in biopsying a clinically suspicious abnormality. "Our facility is accredited by the [employer]ammography Program."
== END | disposition home or self-care (01) ==
LOC: MAMMO 13:46
PROVIDERS: ATTEND Internal Medicine
DX: Z12.31 Encounter for screening mammogram for malignant neoplasm of breast (principal); E11.9 Type 2 diabetes mellitus without complications
CPT/HCPCS: G0202; 77067

== ENCOUNTER → 2017-02-16 | Outpatient (CLI) | payer MEDICARE ==
--- NOTE | 2017-02-16 12:53 | CARD ---
APPROVED REPORT EXAM: Two-dimensional and M-mode echocardiogram with Doppler and color Doppler. Other Information Quality : GoodHR: 70bpm Rhythm : NSR INDICATION Pulmonary hypertension RISK FACTORS Hypertension 2D DIMENSIONS RVDd3.0 (2.9-3.5cm)Left Atrium(2D)3.2 (1.6-4.0cm) IVSd1.3 (0.7-1.1cm)Aortic Root(2D)2.6 (2.0-3.7cm) LVDd3.4 (3.9-5.9cm)LVOT Diameter2.3 (1.8-2.4cm) PWd1.2 (0.7-1.1cm)LVDs2.2 (2.5-4.0cm) FS (%) 37.4 %SV33.3 ml LVEF(%)68.5 (>50%) Aortic Valve AoV Peak James.129.6cm/sAoV VTI30.4cm AO Peak GR.6.7mmHgLVOT Peak James.99.2cm/s LVOT VTI 23.61cmAO Mean GR.4mmHg LOUISE (VMAX)3.10qm8IEO (VTI)3.12cm2 Mitral Valve MV E Rlyjposy40.6cm/sMV DECEL [id number] MV A Qqnhitli061.6cm/sMV E Mean Gr.2mmHg MV PEP25xrW/A Ratio0.8 MV A Kyzccdlc857pqVIY (PHT)3.33cm2 TDI E/Lateral E'9.6E/Medial E'10.2 Pulmonary Valve PV Peak Tmsmtyok162.0cm/sPV Peak Grad.5mmHg Tricuspid Valve TR P. Dqieakds413dp/sTR Peak Gr.49mmHg Pulmonary Vein S1 Iokxfmbb10.4cm/sD2 Ltvufhmx39.9cm/s PVa qlvrttor10bcil LEFT VENTRICLE The left ventricle cavity is small. There is mild concentric left ventricular hypertrophy. The left v entricular systolic function is normal. The Ejection Fraction is 65-70%. There is normal LV segmental wall motion. Transmitral Doppler flow pattern is Grade I-abnormal relaxation pattern. RIGHT VENTRICLE The right ventricle is normal size. There is normal right ventricular wall thickness. The right ventr icular systolic function is normal. ATRIA The left atrium is mildly dilated. The right atrium size is normal. The interatrial septum is intact with no evidence for an atrial septal defect or patent foramen ovale as noted on 2-D or Doppler imagi ng. AORTIC VALVE The aortic valve is mildly sclerotic. The aortic valve is trileaflet. Doppler and Color Flow revealed no significant aortic regurgitation. There is no significant aortic valvular stenosis. MITRAL VALVE Mitral annular calcification is mild. The mitral valve leaflets are thickened. There is no evidence o f mitral valve prolapse. There is no mitral valve stenosis. Doppler and Color Flow revealed mild to m oderate mitral regurgitation. TRICUSPID VALVE Doppler and Color Flow revealed moderate tricuspid regurgitation. The pulmonary artery systolic press ure is estimated at 52 mmHg. There is moderate pulmonary hypertension. PULMONIC VALVE The pulmonary valve is not well visualized but appears to open adequately. Doppler and Color Flow rev ealed trace pulmonic valvular regurgitation. There is no pulmonic valvular stenosis by spectral Doppl er. GREAT VESSELS The aortic root is normal in size. The ascending aorta is normal in size. The pulmonary artery is nor mal. The IVC is normal in size and collapses >50% with inspiration. PERICARDIAL EFFUSION There is no evidence of significant pericardial effusion. Critical Notification Critical Value: No <Conclusion> The left ventricular systolic function is normal. The Ejection Fraction is 65-70%. There is normal LV segmental wall motion. Transmitral Doppler flow pattern is Grade I-abnormal relaxation pattern. The left atrium is mildly dilated. Mild to moderate mitral regurgitation. Moderate tricuspid regurgitation. The pulmonary artery systolic pressure is estimated at 52 mmHg. There is moderate pulmonary hypertension. There is no evidence of significant pericardial effusion.
--- NOTE | 2017-02-16 16:21 | RAD ---
Carotid ultrasound, 02/16/2017: History: Carotid artery disease Duplex evaluation of the carotid arteries in the neck was performed including grayscale, color-flow and spectral Doppler analysis. There are mild scattered plaques in the common carotid arteries and at the carotid bifurcations. The Doppler data obtained from the bifurcations reveals no significant focal velocity acceleration to suggest a hemodynamically significant carotid stenosis. The peak systolic velocity in the right internal carotid artery is 73 cm/s with an end-diastolic velocity of 20 cm/s. The peak systolic velocity in the left internal carotid artery is 114 cm/s with an end-diastolic velocity of 15 cm percent. The internal carotid to common carotid artery ratio on both sides is approximately 1.0. Antegrade flow is present in both vertebral arteries in the neck. IMPRESSION: Mild atherosclerotic plaquing at both carotid bifurcations with underlying luminal narrowing in the 0-50% diameter range bilaterally. Note: Stenosis calculations for CTA, MRA and conventional angiography are based upon determination of the distal ICA diameter in accordance with the NASCET methodology. Stenosis calculations for Doppler studies are derived from validated velocity criteria which are known to correlate with NASCET methodology of determining stenosis.
== END | disposition home or self-care (01) ==
LOC: ECHO 10:11
PROVIDERS: ATTEND Internal Medicine Cardiovascular Disease
DX: I27.2 Other secondary pulmonary hypertension (principal); I77.9 Disorder of arteries and arterioles, unspecified
CPT/HCPCS: 93306; 93880

== ENCOUNTER 2017-03-05 23:41 | Emergency (ER) | payer MEDICARE ==
[~2017-03-05] VITALS: Ht 157.5 cm; Wt 49.0 kg
[2017-03-05 23:52] VITALS: BP 157/70
--- NOTE | 2017-03-05 23:54 | PHYS DOC ---
Past Medical History Past Medical History: Asthma, Diabetes-Type II, High Cholesterol, Hypertension Past Surgical History: Hysterectomy Additional Past Surgical Histo: carotid artery, cyst removed from left breast Additional Information: non smoker Alcohol Use: None Drug Use: None Adult General Chief Complaint Chief Complaint: GENERALIZED BODY ACHES HPI HPI Patient is a 81 year old female who presents with intermittent left leg pain. She states that she went to hinduism this am and then had pain "from my ankle to my hip." No numbnes or weakness. It lasted "a short while." No swelling. No redness. NO return of the pain. No back pain. She then felt like she had chills "and I couldn't sleep." No chest pain, no SOA, no abdominal pain, NO headache, no vomiting or diarrhea. Review of Systems Review of Systems Constitutional: Denies fever; POS chills tonight Eyes: Denies change in visual acuity, redness, or eye pain HENT: Denies nasal congestion or sore throat Respiratory: Denies cough or shortness of breath Cardiovascular: No chest pain GI: Denies abdominal pain, nausea, vomiting, bloody stools or diarrhea : Denies dysuria or hematuria Musculoskeletal: Denies back pain. Left leg with intermittent pain;NO swelling. Integument: Denies rash or skin lesions Neurologic: Denies headache, focal weakness or sensory changes Allergies Allergies Allergies Coded Allergies Type Severity Reaction Last Updated Verified lisinopril Allergy Mild cough 10/18/13 Yes Physical Exam Physical Exam Constitutional: Well developed, well nourished, no acute distress, non-toxic appearance. HENT: Normocephalic, atraumatic, bilateral external ears normal, oropharynx moist, no oral exudates, nose normal. Eyes: PERRLA, EOMI, conjunctiva normal, no discharge. Neck: Normal range of motion, no tenderness, supple, no stridor. Cardiovascular:Heart rate regular rhythm, no murmur Lungs & Thorax: Bilateral breath sounds clear to auscultation Abdomen: Bowel sounds normal, soft, no tenderness, no masses, no pulsatile masses. Skin: Warm, dry, no erythema, no rash. Back: No tenderness, no CVA tenderness. Extremities: No tenderness, no cyanosis, no clubbing, ROM intact, no edema. Neg Terrance's sign. Neurologic: Alert and oriented X 3, normal motor function, normal sensory function, no focal deficits noted. Psychologic: Affect normal, judgement normal, mood normal. Current Patient Data Vital Signs Vital Signs Date Time Temp Pulse Resp B/P (MAP) Pulse Ox O2 Delivery O2 Flow Rate FiO2 03/05/17 23:52 97.8 73 18 157/70 (99) 98 Room Air 97.8 Lab Values Laboratory Tests Test 03/06/17 00:05 03/06/17 00:08 Urine Collection Type Unknown Urine Color Yellow Urine Clarity Clear Urine pH 7.0 Urine Specific [place] <=1.005 Urine Protein Negative mg/dL (NEG-TRACE) Urine Glucose (UA) 100 mg/dL (NEG) Urine Ketones (Stick) Negative mg/dL (NEG) Urine Blood Negative (NEG) Urine Nitrite Negative (NEG) Urine Bilirubin Negative (NEG) Urine Urobilinogen Dipstick 0.2 mg/dL (0.2 mg/dL) Urine Leukocyte Esterase Negative (NEG) Urine RBC 0 /HPF (0-2) Urine WBC 0 /HPF (0-4) Urine Squamous Epithelial Cells Occ /LPF Urine Bacteria 0 /HPF (0-FEW) White Blood Count 8.4 x10^3/uL (4.0-11.0) Red Blood Count 3.55 x10^6/uL (3.50-5.40) Hemoglobin 11.0 g/dL (12.0-15.5) L Hematocrit 33.1 % (36.0-47.0) L Mean Corpuscular Volume 93 fL (79-100) Mean Corpuscular Hemoglobin 31 pg (25-35) Mean Corpuscular Hemoglobin Concent 33 g/dL (31-37) Red Cell Distribution Width 13.6 % (11.5-14.5) Platelet Count 164 x10^3/uL (140-400) Neutrophils (%) (Auto) 69 % (31-73) Lymphocytes (%) (Auto) 18 % (24-48) L Monocytes (%) (Auto) 6 % (0-9) Eosinophils (%) (Auto) 6 % (0-3) H Basophils (%) (Auto) 1 % (0-3) Neutrophils # (Auto) 5.8 x10^3uL (1.8-7.7) Lymphocytes # (Auto) 1.5 x10^3/uL (1.0-4.8) Monocytes # (Auto) 0.5 x10^3/uL (0.0-1.1) Eosinophils # (Auto) 0.5 x10^3/uL (0.0-0.7) Basophils # (Auto) 0.1 x10^3/uL (0.0-0.2) Sodium Level 138 mmol/L (136-145) Potassium Level 4.3 mmol/L (3.5-5.1) Chloride Level 101 mmol/L (98-107) Carbon Dioxide Level 33 mmol/L (21-32) H Anion Gap 4 (6-14) L Blood Urea Nitrogen 23 mg/dL (7-20) H Creatinine 1.1 mg/dL (0.6-1.0) H Estimated GFR (Cockcroft-Gault) 57.4 BUN/Creatinine Ratio 21 (6-20) H Glucose Level 256 mg/dL (70-99) H Calcium Level 9.8 mg/dL (8.5-10.1) Magnesium Level 2.2 mg/dL (1.8-2.4) Total Bilirubin 0.2 mg/dL (0.2-1.0) Aspartate Amino Transferase (AST) 20 U/L (15-37) Alanine Aminotransferase (ALT) 24 U/L (14-59) Alkaline Phosphatase 93 U/L (46-116) Creatine Kinase 83 U/L (26-192) Creatine Kinase MB (Mass) 0.8 ng/mL (0.0-3.6) Creatine Kinase MB Relative Index 1.0 % (0-4) Troponin I Quantitative < 0.017 ng/mL (0.000-0.055) AF-Uym-G-Type Natriuretic Peptide 226 pg/mL (0-449) Total Protein 7.6 g/dL (6.4-8.2) Albumin 3.8 g/dL (3.4-5.0) Albumin/Globulin Ratio 1.0 (1.0-1.7) Laboratory Tests 03/06/17 00:08 Laboratory Tests 03/06/17 00:08 EKG EKG EKG interpreted by myself at 0029 am: NSR, rate 71, PAC, leftward axis; no ST elev Course & Med Decision Making Course & Med Decision Making Patient with vague complaints at present.SHE HAS NOT HAD THE LEFT LEG PAIN SINCE THIS AM. The pain is radicular in nature. Lab is unremarkable here (last Bun/Cr=17/1.1 on 11/25/16). No acute abnormalities noted here. Home w family with follow up precautions given. I have spoken with the patient and/or caregivers. I have explained the patient' s condition, diagnosis and treatment plan based on the information available to me at this time. I have answered the patient's and/or caregiver's questions and addressed any concerns. The patient and/or caregivers have as good an understanding of the patient's diagnosis, condition and treatment plan as can be expected at this point. The patient's condition is stable and appropriate for discharge from the emergency department. The patient will pursue further outpatient evaluation with the primary care physician or other designated or consulting physician as outlined in the discharge instructions. The patient and/or caregivers are agreeable to this plan of care and follow-up instructions have been explained in detail. The patient and/or caregivers have received these instructions in written format and have expressed an understanding of the discharge instructions. The patient and/or caregivers are aware that any significant change in condition or worsening of symptoms should prompt an immediate return to this or the closest emergency department or a call to 911. Dragon Disclaimer Dragon Disclaimer This electronic medical record was generated, in whole or in part, using a voice recognition dictation system. Departure Departure Impression: Primary Impression: Radicular pain of left lower extremity Disposition: HOME, SELF-CARE Condition: STABLE Referrals: ARETHA NEFF MD (PCP) Patient Instructions: Sciatica Additional Instructions: YOU DID NOT HAVE ANY PAIN HERE. ALL YOUR LAB WAS NORMAL. IF YOU HAVE RETURN OF THE PAIN CALL YOUR DOCTOR FOR A RECHECK DILIP MCDERMOTT MD Mar 05, 2017 23:54
[2017-03-06 00:24] LABS: BILIRUBIN,URINE NEGATIVE (NEG); GLUCOSE,URINE 100 mg/dL (NEG); NITRITE,URINE NEGATIVE (NEG); PROTEIN,URINE NEGATIVE (NEG-TRACE); UROBILINOGEN,URINE 0.2 mg/dL (0.2 mg/dL)
[2017-03-06 00:30] LABS: BASO # 0.1 x10^3/uL (0.0-0.2); BASO % 1 % (0-3); EOS % 6 % (0-3); HEMATOCRIT 33.1 % (36.0-47.0); LYMPH # 1.5 x10^3/uL (1.0-4.8); LYMPH % 18 % (24-48); MEAN CORPUSCULAR HEMOGLOBIN 31 pg (25-35); MEAN CORPUSCULAR HGB CONC 33 g/dL (31-37); MEAN CORPUSCULAR VOLUME 93 fL (79-100); MONO % 6 % (0-9); NEUT % 69 % (31-73); PLATELET COUNT 164 x10^3/uL (140-400); RED BLOOD COUNT 3.55 x10^6/uL (3.50-5.40); RED CELL DISTRIBUTION WIDTH 13.6 % (11.5-14.5); WHITE BLOOD COUNT 8.4 x10^3/uL (4.0-11.0)
[2017-03-06 00:32] LABS: BACTERIA,URINE 0 /HPF (0-FEW); RBC,URINE 0 /HPF (0-2); SQUAMOUS EPITHELIAL CELL,UR OCC /LPF; WBC,URINE 0 /HPF (0-4)
[2017-03-06 00:47] LABS: ALBUMIN 3.8 g/dL (3.4-5.0); CALCIUM 9.8 mg/dL (8.5-10.1); CREATININE 1.1 mg/dL (0.6-1.0); GFR 57.4; POTASSIUM 4.3 mmol/L (3.5-5.1); TOTAL BILIRUBIN 0.2 mg/dL (0.2-1.0); TOTAL PROTEIN 7.6 g/dL (6.4-8.2)
[2017-03-06 00:54] LABS: CKMB MASS 0.8 ng/mL (0.0-3.6)
--- NOTE | 2017-03-06 06:32 | EKG ---
[facility] [address] [place] [address] Test Date: 2017-03-06 Test Time: 00:29:07 Pat Name: DEENA ASHTON Department: Room: Gender: F Demand Inspector: : 1935 Requested By: DILIP MCDERMOTT Order Number: [id number] Reading MD: Cira Kolb Measurements Intervals [place] Rate: 71 P: 64 [place]: 174 QRS: -15 QRSD: 78 T: 24 QT: 420 QTc: 457 Interpretive Statements SINUS RHYTHM ATRIAL PREMATURE COMPLEX(ES) LEFTWARD AXIS Electronically Signed On 03-06-2017 18:56:45 CDT by Cira Kolb
== END 2017-03-06 02:09 | disposition home or self-care (01) ==
LOC: ER 23:41
DX: M54.10 Radiculopathy, site unspecified (principal); E78.00 Pure hypercholesterolemia, unspecified; E11.9 Type 2 diabetes mellitus without complications; I10 Essential (primary) hypertension; J45.909 Unspecified asthma, uncomplicated; Z90.710 Acquired absence of both cervix and uterus; Z88.8 Allergy status to other drugs, medicaments and biological substances
CPT/HCPCS: 36415; 80053; 81001; 82553; 83735; 83880; 84484; 85025; 93005; 99285-25

== ENCOUNTER 2017-05-03 11:47 | Emergency (ER) | payer MEDICARE ==
[~2017-05-03] VITALS: Ht 157.5 cm; Wt 47.6 kg
--- NOTE | 2017-05-03 12:17 | PHYS DOC ---
Past Medical History Past Medical History: Asthma, Bronchitis, Diabetes-Type II, Hypertension Past Surgical History: Hysterectomy Additional Past Surgical Histo: REMOVED LESION LEFT BREAST, RIGHT CAROTID ARTERY Alcohol Use: None Drug Use: None Adult General Chief Complaint Chief Complaint: DIZZY/LIGHT HEADED HPI HPI Patient is a 81 year old FEMALE who presents with feeling of dizziness. She describes this as lightheadedness, feeling that she could pass out. It worsens when she gets up and moves around, does improve when she lays down. She denies a sensation of vertigo, she denies any focal weakness. She reports ongoing increased urinary frequency, she attributes that she's been losing weight due to the increased urination. She denies chest pain or shortness of breath, no fevers. She had sinus congestion and cough throughout the night causing her to not be able to sleep. She does report back pain and intermittent headaches that are sharp in nature. No blurry vision Primary care physician is Dr. Neff ` Review of Systems Review of Systems Constitutional: Denies fever or chills [] Eyes: Denies change in visual acuity, redness, or eye pain [] HENT: reports nasal congestion , denies Respiratory: reports cough , denies shortness of breath [] Cardiovascular: denies chest pain GI: Denies abdominal pain, nausea, vomiting, bloody stools or diarrhea [] : Denies dysuria or hematuria , reports increased frequency Musculoskeletal: reports back pain with working/lifting, improves with rest Integument: Denies rash or skin lesions [] Neurologic: Denies current headache, focal weakness or sensory changes [] All other systems were reviewed and found to be within normal limits, except as documented in this note. Allergies Allergies Allergies Coded Allergies Type Severity Reaction Last Updated Verified lisinopril Allergy Mild cough 10/18/13 Yes Physical Exam Physical Exam Constitutional: Well developed,thin, frail, no acute distress, non-toxic appearance. [] HENT: Normocephalic, atraumatic, bilateral external ears normal, oropharynx moist, no oral exudates, nose normal. [] Eyes: PERRLA, EOMI, conjunctiva normal, no discharge. [] Neck: Normal range of motion, no tenderness, supple, no stridor. [] Cardiovascular:Heart rate regular with regular rhythm, no murmur [] Lungs & Thorax: Bilateral breath sounds clear to auscultation, no wheeze or crackles Abdomen: Bowel sounds normal, soft, no tenderness, no masses, no pulsatile masses. [] Skin: Warm, dry, no erythema, no rash. [] Back: No tenderness, no CVA tenderness. [] Extremities: No tenderness, no cyanosis, no clubbing, ROM intact, no edema. [] Neurologic: Alert and oriented X 3, normal motor function, normal sensory function, no focal deficits noted. CN II-XII intact Current Patient Data Vital Signs Vital Signs Date Time Temp Pulse Resp B/P (MAP) Pulse Ox O2 Delivery O2 Flow Rate FiO2 05/03/17 11:50 97.7 66 17 132/63 (86) 98 Room Air 97.7 Lab Values Laboratory Tests Test 05/03/17 12:07 05/03/17 12:09 White Blood Count 5.5 x10^3/uL (4.0-11.0) Red Blood Count 3.83 x10^6/uL (3.50-5.40) Hemoglobin 11.8 g/dL (12.0-15.5) L Hematocrit 35.4 % (36.0-47.0) L Mean Corpuscular Volume 92 fL (79-100) Mean Corpuscular Hemoglobin 31 pg (25-35) Mean Corpuscular Hemoglobin Concent 33 g/dL (31-37) Red Cell Distribution Width 13.5 % (11.5-14.5) Platelet Count 171 x10^3/uL (140-400) Neutrophils (%) (Auto) 50 % (31-73) Lymphocytes (%) (Auto) 35 % (24-48) Monocytes (%) (Auto) 8 % (0-9) Eosinophils (%) (Auto) 5 % (0-3) H Basophils (%) (Auto) 1 % (0-3) Neutrophils # (Auto) 2.8 x10^3uL (1.8-7.7) Lymphocytes # (Auto) 2.0 x10^3/uL (1.0-4.8) Monocytes # (Auto) 0.4 x10^3/uL (0.0-1.1) Eosinophils # (Auto) 0.3 x10^3/uL (0.0-0.7) Basophils # (Auto) 0.1 x10^3/uL (0.0-0.2) Prothrombin Time 13.5 SEC (11.7-14.0) Prothrombin Time INR 1.1 (0.8-1.1) Sodium Level 138 mmol/L (136-145) Potassium Level 3.9 mmol/L (3.5-5.1) Chloride Level 99 mmol/L (98-107) Carbon Dioxide Level 30 mmol/L (21-32) Anion Gap 9 (6-14) Blood Urea Nitrogen 25 mg/dL (7-20) H Creatinine 1.4 mg/dL (0.6-1.0) H Estimated GFR (Cockcroft-Gault) 43.5 BUN/Creatinine Ratio 18 (6-20) Glucose Level 249 mg/dL (70-99) H Calcium Level 10.0 mg/dL (8.5-10.1) Magnesium Level 2.5 mg/dL (1.8-2.4) H Total Bilirubin 0.7 mg/dL (0.2-1.0) Aspartate Amino Transferase (AST) 18 U/L (15-37) Alanine Aminotransferase (ALT) 21 U/L (14-59) Alkaline Phosphatase 75 U/L (46-116) Troponin I Quantitative < 0.017 ng/mL (0.000-0.055) Total Protein 8.0 g/dL (6.4-8.2) Albumin 4.1 g/dL (3.4-5.0) Albumin/Globulin Ratio 1.1 (1.0-1.7) Urine Collection Type Unknown Urine Color Yellow Urine Clarity Clear Urine pH 6.0 Urine Specific [place] 1.020 Urine Protein Negative mg/dL (NEG-TRACE) Urine Glucose (UA) 250 mg/dL (NEG) Urine Ketones (Stick) Negative mg/dL (NEG) Urine Blood Negative (NEG) Urine Nitrite Negative (NEG) Urine Bilirubin Negative (NEG) Urine Urobilinogen Dipstick 0.2 mg/dL (0.2 mg/dL) Urine Leukocyte Esterase Negative (NEG) Urine RBC Occ /HPF (0-2) Urine WBC Occ /HPF (0-4) Urine Squamous Epithelial Cells Few /LPF Urine Bacteria 0 /HPF (0-FEW) Urine Hyaline Casts Moderate /HPF Laboratory Tests 05/03/17 12:07 Laboratory Tests 05/03/17 12:07 EKG EKG 1159: 64 bpm, sinus, normal axis, QTC of 475, ST elevation noted in V2 only, wandering baseline, nonischemic T waves, interpreted by me[] Radiology/Procedures Radiology/Procedures CT head: Impression: 1. No acute intracranial process. Chest x-ray: IMPRESSION: No acute cardiopulmonary abnormality is detected. Course & Med Decision Making Course & Med Decision Making Pertinent Labs and Imaging studies reviewed. (See chart for details) Labs, urinalysis, chest x-ray and CT head ordered. EKG did not show significant abnormality. Pt ambulatory in the ER without difficulty, workup rather unremarkable. Pt feels comfortable with discharge, will treat with Augmentin, strict return precautions, f/u with PCP Ben Disclaimer Dragon Disclaimer This electronic medical record was generated, in whole or in part, using a voice recognition dictation system. Departure Departure Impression: Primary Impression: Sinusitis Additional Impression: Dizziness Disposition: HOME, SELF-CARE Condition: IMPROVED Referrals: ARETHA NEFF MD (PCP) Scripts Amoxicillin/Potassium Clav (AUGMENTIN 875-125 TABLET) 1 Each Tablet 1 TAB PO BID, #14 TAB Prov: DARIUS FOWLER MD 05/03/17 Problem Qualifiers DARIUS FOWLER MD May 03, 2017 12:17
[2017-05-03 12:21] LABS: BASO # 0.1 x10^3/uL (0.0-0.2); BASO % 1 % (0-3); EOS % 5 % (0-3); HEMATOCRIT 35.4 % (36.0-47.0); HEMOGLOBIN 11.8 g/dL (12.0-15.5); LYMPH % 35 % (24-48); MEAN CORPUSCULAR HEMOGLOBIN 31 pg (25-35); MEAN CORPUSCULAR HGB CONC 33 g/dL (31-37); MEAN CORPUSCULAR VOLUME 92 fL (79-100); MONO % 8 % (0-9); NEUT % 50 % (31-73); PLATELET COUNT 171 x10^3/uL (140-400); RED BLOOD COUNT 3.83 x10^6/uL (3.50-5.40); RED CELL DISTRIBUTION WIDTH 13.5 % (11.5-14.5); WHITE BLOOD COUNT 5.5 x10^3/uL (4.0-11.0)
[2017-05-03 12:25] LABS: BILIRUBIN,URINE NEGATIVE (NEG); GLUCOSE,URINE 250 mg/dL (NEG); NITRITE,URINE NEGATIVE (NEG); PROTEIN,URINE NEGATIVE (NEG-TRACE); UROBILINOGEN,URINE 0.2 mg/dL (0.2 mg/dL)
--- NOTE | 2017-05-03 12:28 | EKG ---
[facility] [address] [place] [address] Test Date: 2017-05-03 Test Time: 11:59:09 Pat Name: DEENA ASHTON Department: Room: Gender: F Video Rental Clerk: : 1935 Requested By: DARIUS FOWLER Order Number: [id number] Reading MD: Measurements Intervals [place] Rate: 64 P: 33 MS: 156 QRS: -14 QRSD: 108 T: 19 QT: 456 QTc: 475 Interpretive Statements SINUS RHYTHM LEFTWARD AXIS ST & T ABNORMALITY, CONSIDER RECENT ANTERIOR MYOCARDIAL OR PERICARDIAL DAMAGE PROLONGED QT ABNORMAL ECG RI6.01 No previous ECG available for comparison
[2017-05-03 12:30] LABS: INR 1.1 (0.8-1.1); PROTHROMBIN TIME PATIENT 13.5 SEC (11.7-14.0)
[2017-05-03 12:32] LABS: CREATININE 1.4 mg/dL (0.6-1.0); GFR 43.5; POTASSIUM 3.9 mmol/L (3.5-5.1)
[2017-05-03 12:37] LABS: SQUAMOUS EPITHELIAL CELL,UR FEW /LPF
[2017-05-03 12:37] LABS: ALBUMIN 4.1 g/dL (3.4-5.0); ALBUMIN/GLOBULIN RATIO 1.1 (1.0-1.7); MAGNESIUM 2.5 mg/dL (1.8-2.4); TOTAL BILIRUBIN 0.7 mg/dL (0.2-1.0)
[2017-05-03 12:38] LABS: RBC,URINE OCC /HPF (0-2)
[2017-05-03 12:39] LABS: BACTERIA,URINE 0 /HPF (0-FEW); WBC,URINE OCC /HPF (0-4)
--- NOTE | 2017-05-03 12:43 | RAD ---
Portable chest, 05/03/2017: History: Dizziness and weakness Comparison is made to a study from 11/25/2016. The heart is at the upper limits of normal in size. There is calcific plaquing and tortuosity of the thoracic aorta. The pulmonary vascularity is normal. No pulmonary infiltrates are seen. There is no evidence of pleural fluid. A mild thoracic scoliosis is again noted. IMPRESSION: No acute cardiopulmonary abnormality is detected.
--- NOTE | 2017-05-03 12:48 | RAD ---
CT head without contrast History: Dizziness, intermittent headaches. Comparison: 08/19/2016. Procedure: Axial images are obtained of the head from the skull base through the vertex without IV contrast. Findings: Mild bilateral periventricular white matter hypodensities likely chronic small ischemic disease. Small hypodensity identified in the right and left basal ganglia region likely old lacunar infarct similar to prior exam. The ventricles and sulci are normal for the patient's age. No mass-effect, intracranial mass, midline shift, hemorrhage or obvious acute infarction is identified. Basilar cisterns are patent. Bone windows demonstrate no significant calvarial abnormality. The visualized paranasal sinuses appear clear. Impression: 1. No acute intracranial process. PQRS Compliance Statement: One or more of the following individualized dose reduction techniques were utilized for this examination: 1. Automated exposure control 2. Adjustment of the mA and/or kV according to patient size 3. Use of iterative reconstruction technique
[2017-05-03 12:50] VITALS: BP 127/67
[2017-05-03] MEDS ORDERED: AMOX1TAB61 PO (14:00)
== END 2017-05-03 14:19 | disposition home or self-care (01) ==
LOC: ER 11:47
DX: R42 Dizziness and giddiness (principal); J32.9 Chronic sinusitis, unspecified; E11.9 Type 2 diabetes mellitus without complications; I10 Essential (primary) hypertension; J45.909 Unspecified asthma, uncomplicated; Z90.710 Acquired absence of both cervix and uterus; Z88.8 Allergy status to other drugs, medicaments and biological substances
CPT/HCPCS: 36415; 70450; 71010; 80053; 81001; 83735; 84484; 85025; 85610; 93005; 99285-25

== ENCOUNTER → 2018-01-11 | Outpatient (CLI) | payer MEDICARE ==
[~2018-01-11] MED LIST changes: +AMOX1TAB61 PO
--- NOTE | 2018-01-12 12:37 | RAD ---
DATE: 01/11/2018 EXAM: MAMMO DENNIS SCREENING BILATERAL HISTORY: routine screening evaluation. COMPARISON: 01/10/2017, 01/04/2016, 12/31/2014, 12/04/2013 Bilateral CC and MLO views of the breasts were performed. Bilateral breast tomosynthesis was performed in CC and MLO projections. This study was interpreted with the benefit of Computerized Aided Detection (CAD). The breast parenchyma shows scattered fibroglandular densities. Breast parenchyma level B. FINDINGS: Benign calcifications are present. No suspicious masses, microcalcifications or architectural distortion is present to suggest malignancy in either breast. The visualized axillae are unremarkable. IMPRESSION: No mammographic evidence of malignancy. BI-RADS CATEGORY: 2 BENIGN FINDING(S) RECOMMENDED FOLLOW-UP: 12M 12 MONTH FOLLOW-UP Annual screening mammography is recommended, unless clinically indicated sooner based on symptoms or change in physical exam. PQRS compliance statement: Patient information was entered into a reminder system with a target due date for the next mammogram. Mammography is a sensitive method for finding small breast cancers, but it does not detect them all and is not a substitute for careful clinical examination. A negative mammogram does not negate a clinically suspicious finding and should not result in delay in biopsying a clinically suspicious abnormality. "Our facility is accredited by the [employer]ammography Program."
== END | disposition home or self-care (01) ==
LOC: MAMMO 09:19
PROVIDERS: ATTEND Family Medicine
DX: Z12.31 Encounter for screening mammogram for malignant neoplasm of breast (principal)
CPT/HCPCS: 77063; 77067

== ENCOUNTER 2018-05-31 19:17 | Emergency (ER) | payer MEDICARE ==
[~2018-05-31] VITALS: Ht 157.5 cm; Wt 47.6 kg
[~2018-05-31 19:17] MED LIST changes: +ALBU2.5V8 INH; -HYDR-2758 PO; +HYDR-2761 PO; +HYDR-3164 PO; -HYDR-971 PO; -PROAIR HFA8.5 GM INH
--- NOTE | 2018-05-31 20:16 | PHYS DOC ---
Past Medical History Past Medical History: Asthma, Bronchitis, Diabetes-Type II, Hypertension Past Surgical History: Hysterectomy Additional Past Surgical Histo: REMOVED LESION LEFT BREAST, RIGHT CAROTID ARTERY Alcohol Use: None Drug Use: None Adult General Chief Complaint Chief Complaint: LOWER EXT PAIN HPI HPI Patient is a 83 year old female who presents with left lower extremity pain. This started approximately 2 weeks ago. No trauma. Worse with laying in bed. Better with being up and moving and walking around. Some relief with Tylenol and ibuprofen however as the medication wears off the pain returns. Patient has not seen her primary care physician for this. Denies any new shortness of breath. Denies any new trauma. Pain is described as aching, moderate in intensity.[] Review of Systems Review of Systems Constitutional: Denies fever or chills [] Eyes: Denies change in visual acuity, redness, or eye pain [] HENT: Denies nasal congestion or sore throat [] Respiratory: Denies cough or shortness of breath [] Cardiovascular: No chest pain or palpitations[] GI: Denies abdominal pain, nausea, vomiting, bloody stools or diarrhea [] : Denies dysuria or hematuria [] Musculoskeletal: See history of present illness[] Integument: Denies rash or skin lesions [] Neurologic: Denies headache, focal weakness or sensory changes [] Endocrine: Denies polyuria or polydipsia [] All other systems were reviewed and found to be within normal limits, except as documented in this note. Current Medications Current Medications Current Medications Medications (Trade) Dose Ordered Sig/[facility] Start Time Stop Time Status Last Admin Dose Admin Tramadol HCl (Ultram) 50 mg 1X ONCE 05/31/18 21:30 05/31/18 21:31 Allergies Allergies Allergies Coded Allergies Type Severity Reaction Last Updated Verified lisinopril Allergy Mild cough 10/18/13 Yes Physical Exam Physical Exam Constitutional: Well developed, well nourished, no acute distress, non-toxic appearance. [] HENT: Normocephalic, atraumatic, bilateral external ears normal, oropharynx moist, no oral exudates, nose normal. [] Eyes: PERRLA, EOMI, conjunctiva normal, no discharge. [] Neck: Normal range of motion, no tenderness, supple, no stridor. [] Cardiovascular:Heart rate regular rhythm, no murmur [] Lungs & Thorax: Bilateral breath sounds clear to auscultation [] Abdomen: Bowel sounds normal, soft, no tenderness, no masses, no pulsatile masses. [] Skin: Warm, dry, no erythema, no rash. [] Back: No tenderness, no CVA tenderness. [] Extremities: No tenderness, no cyanosis, no clubbing, ROM intact, no edema. No pain with axial loading of either lower extremities, full active range of motion of hip, knee, ankle. Patient is distal neurovascularly intact.[] Neurologic: Alert and oriented X 3, normal motor function, normal sensory function, no focal deficits noted. [] Psychologic: Affect normal, judgement normal, mood normal. [] Current Patient Data Vital Signs Vital Signs Date Time Temp Pulse Resp B/P (MAP) Pulse Ox O2 Delivery O2 Flow Rate FiO2 05/31/18 19:21 97.7 65 18 161/41 (81) 98 Room Air 97.7 EKG EKG [] Radiology/Procedures Radiology/Procedures Ultrasound was negative for DVT[] Course & Med Decision Making Course & Med Decision Making Pertinent Labs and Imaging studies reviewed. (See chart for details) Medical decision making: Do not see any evidence of a fracture or dislocation. Patient ambulates with normal gait. No evidence of neuro or vascular compromise. No evidence of DVT.[] Dragon Disclaimer Dragon Disclaimer This electronic medical record was generated, in whole or in part, using a voice recognition dictation system. Departure Departure Impression: Primary Impression: Left leg pain Disposition: 01 HOME, SELF-CARE Condition: GOOD Referrals: LAZARUS TAYLOR MD (PCP) Follow-up with your regular doctor in 2 days. Patient Instructions: Pain of Unknown Etiology (Pain without a known Cause) Additional Instructions: Follow-up with your regular doctor in 2 days. Take your medication as prescribed. Return to the ER if worsening pain or any other concerns. Scripts Tramadol Hcl (TRAMADOL HCL) 50 Mg Tablet 50 MG PO Q6HRS PRN for PAIN, #20 TAB Prov: JEFFREY NIELSEN DO 05/31/18 JEFFREY NIELSEN DO May 31, 2018 20:16
[2018-05-31] MEDS ORDERED: TRAM50TA PO (21:26)
[2018-05-31] MEDS ORDERED: traMADol 50 MG TABLET PO ONE (21:30)
--- NOTE | 2018-05-31 21:33 | RAD ---
Left lower extremity venous Doppler ultrasound History: LLE PAIN X 1 WEEK
LT LAT HIP PAINFUL LUMP Comparison: None. Procedure: Color flow Doppler, Doppler spectral analysis, and 2D images are obtained with and without compression in the area of the common femoral vein, superficial femoral vein - femoral vein junction, main femoral vein (superficial femoral vein) and popliteal vein. Veins of the proximal calf are also imaged. Findings: There is normal color flow, augmentation, and compressibility of all visualized vein segments. No evidence of deep venous thrombus is present. Grayscale images of the lateral left hip area of pain demonstrate normal subcutaneous tissues and preserved fascial planes. IMPRESSION: No evidence of left lower extremity deep venous thrombosis. Electronically signed by: Thiago Birch MD (05/31/2018 9:28 PM) [facility]
[2018-05-31 21:36] VITALS: BP 150/64
== END 2018-05-31 21:36 | disposition home or self-care (01) ==
LOC: ER 19:17
DX: M79.605 Pain in left leg (principal); J45.909 Unspecified asthma, uncomplicated; E11.9 Type 2 diabetes mellitus without complications; I10 Essential (primary) hypertension; Z90.710 Acquired absence of both cervix and uterus; Z88.8 Allergy status to other drugs, medicaments and biological substances
CPT/HCPCS: 93971; 99284-25

== ENCOUNTER 2018-06-06 18:18 | Emergency (ER) | payer MEDICARE ==
[~2018-06-06] VITALS: Ht 157.5 cm; Wt 47.6 kg
[~2018-06-06 18:18] MED LIST changes: -ALEN70TA5 PO; +ALEN70TA6 PO; +TRAM50TA PO
--- NOTE | 2018-06-06 18:45 | PHYS DOC ---
Past Medical History Past Medical History: Asthma, Bronchitis, Diabetes-Type II, Hypertension Past Surgical History: Hysterectomy Additional Past Surgical Histo: REMOVED LESION LEFT BREAST, RIGHT CAROTID ARTERY Alcohol Use: None Drug Use: None Adult General Chief Complaint Chief Complaint: HEAD INJURY/TRAUMA [facility] HPI Patient is a 83 year old female with history of hypertension, asthma, diabetes type 2, who presents today complaining of right forehead contusion, patient was opening a door which hit her on the forehead. She states she is on blood thinners specifically aspirin 81-325 mg daily. Patient is complaining of forehead pain rated as mild. Denies any loss of consciousness. Denies any neck pain. Review of Systems Review of Systems Constitutional: Denies fever or chills [] Eyes: Denies change in visual acuity, redness, or eye pain [] HENT: Denies nasal congestion or sore throat [] Respiratory: Denies cough or shortness of breath [] Cardiovascular: No additional information not addressed in HPI [] GI: Denies abdominal pain, nausea, vomiting, bloody stools or diarrhea [] : Denies dysuria or hematuria [] Musculoskeletal: Denies back pain or joint pain [] Integument: Denies rash or skin lesions [] Neurologic: Reports right forehead contusion, denies, focal weakness or sensory changes [] All other systems were reviewed and found to be within normal limits, except as documented in this note. Allergies Allergies Allergies Coded Allergies Type Severity Reaction Last Updated Verified lisinopril Allergy Mild cough 10/18/13 Yes Physical Exam Physical Exam Constitutional: Well developed, well nourished, no acute distress, non-toxic appearance. [] HENT: Normocephalic, atraumatic, bilateral external ears normal, oropharynx moist, no oral exudates, nose normal. [] Eyes: PERRLA, EOMI, conjunctiva normal, no discharge. [] Neck: Normal range of motion, no tenderness, supple, no stridor. [] Cardiovascular:Heart rate regular rhythm, no murmur [] Lungs & Thorax: Bilateral breath sounds clear to auscultation [] Abdomen: Bowel sounds normal, soft, no tenderness, no masses, no pulsatile masses. [] Skin: Warm, dry, no erythema, no rash. [] Back: No tenderness, no CVA tenderness. [] Extremities: No tenderness, no cyanosis, no clubbing, ROM intact, no edema. [] Neurologic: Alert and oriented X 3, normal motor function, normal sensory function, no focal deficits noted. Cranial nerves II through XII intact. Right forehead with a small contusion above the eyebrow. Psychologic: Affect normal, judgement normal, mood normal. [] Current Patient Data Vital Signs Vital Signs Date Time Temp Pulse Resp B/P (MAP) Pulse Ox O2 Delivery O2 Flow Rate FiO2 06/06/18 18:55 98.1 66 17 134/60 (84) 98 Room Air 98.1 EKG EKG [] Radiology/Procedures Radiology/Procedures []PROCEDURE: CT HEAD WO CONTRAST Examination: CT HEAD WO CONTRAST History: door hit forehead, headache, prior sent Comparison/Correlation: 08/19/2016 CT head without contrast Findings: Axial images of the head were obtained without contrast. Ventricles are normal size. No intracranial hemorrhage, midline shift, or mass effect. Calcification along the falx and involving the tentorium is present. Calcific density involving the anterior left frontal region measuring up to 0.5 cm diameter is present likely representing a meningioma. Cavernous carotid calcification is notable. Globes and optic nerves are unremarkable. Impression: No intracranial hemorrhage. No significant change. Electronically signed by: Nia Mendez MD (06/06/2018 7:06 PM) [facility] DICTATED and SIGNED BY: NIA MENDEZ MD DATE: 06/06/181903 Course & Med Decision Making Course & Med Decision Making Pertinent Labs and Imaging studies reviewed. (See chart for details) This is a 83-year-old female patient presented to the ED today complaining of right forehead contusion, patient was hit by a door. Discussed with patient risk and benefits of CT of the head. Patient herself requesting CT. CT of the head is negative. Discharged with instructions to ice and elevate the affected area. Follow-up with PCP in 1-2 weeks as needed. Dragon Disclaimer Dragon Disclaimer This electronic medical record was generated, in whole or in part, using a voice recognition dictation system. Departure Departure Impression: Primary Impression: Forehead contusion Disposition: HOME, SELF-CARE Condition: STABLE Referrals: LAZARUS TAYLOR MD (PCP) follow up next week Patient Instructions: Contusion, [id number] Additional Instructions: You were seen for right forehead contusion. Ice elevate the affected area. Take Tylenol as needed for pain. Follow-up with your doctor in the course of next week. Come back to the ED at any point symptoms worsen. Problem Qualifiers Primary Impression: Forehead contusion Encounter type: initial encounter Qualified Codes: S00.83XA - Contusion of other part of head, initial encounter CUCO NG APRN Jun 06, 2018 18:45
[2018-06-06 18:55] VITALS: BP 134/60
--- NOTE | 2018-06-06 19:10 | RAD ---
Examination: CT HEAD WO CONTRAST History: door hit forehead, headache, prior sent Comparison/Correlation: 08/19/2016 CT head without contrast Findings: Axial images of the head were obtained without contrast. Ventricles are normal size. No intracranial hemorrhage, midline shift, or mass effect. Calcification along the falx and involving the tentorium is present. Calcific density involving the anterior left frontal region measuring up to 0.5 cm diameter is present likely representing a meningioma. Cavernous carotid calcification is notable. Globes and optic nerves are unremarkable. Impression: No intracranial hemorrhage. No significant change. Electronically signed by: Luan Hamilton MD (06/06/2018 7:06 PM) [facility]
== END 2018-06-06 19:50 | disposition home or self-care (01) ==
LOC: ER 18:18
DX: S00.83XA Contusion of other part of head, initial encounter (principal); E11.9 Type 2 diabetes mellitus without complications; I10 Essential (primary) hypertension; J45.909 Unspecified asthma, uncomplicated; Z88.8 Allergy status to other drugs, medicaments and biological substances; W22.8XXA Striking against or struck by other objects, initial encounter; Y93.89 Activity, other specified; Y92.89 Other specified places as the place of occurrence of the external cause; Y99.8 Other external cause status
CPT/HCPCS: 70450; 99284-25

== ENCOUNTER 2018-08-01 20:06 | Emergency (ER) | payer MEDICARE ==
[~2018-08-01] VITALS: Ht 157.5 cm; Wt 49.0 kg
[2018-08-01 20:23] VITALS: BP 170/74
[2018-08-01 20:37] LABS: BILIRUBIN,URINE NEGATIVE (NEG); CLARITY,URINE CLEAR; COLOR,URINE YELLOW; NITRITE,URINE NEGATIVE (NEG); PH,URINE 7.5; PROTEIN,URINE 30 mg/dL (NEG-TRACE); UROBILINOGEN,URINE 0.2 mg/dL (0.2 mg/dL)
[2018-08-01 20:52] LABS: BACTERIA,URINE FEW /HPF (0-FEW); RBC,URINE 0 /HPF (0-2); SQUAMOUS EPITHELIAL CELL,UR OCC /LPF
[2018-08-01] MEDS ORDERED: CEPH500T PO (21:05)
--- NOTE | 2018-08-01 21:05 | PHYS DOC ---
Past Medical History Past Medical History: Asthma, Bronchitis, Diabetes-Type II, Hypertension (CUCO NG APRN) Past Surgical History: Hysterectomy Additional Past Surgical Histo: REMOVED LESION LEFT BREAST, RIGHT CAROTID ARTERY (CUCO NG APRN) Alcohol Use: None Drug Use: None (CUCO NG APRN) Adult General Chief Complaint Chief Complaint: PAIN ON URINATION [facility] HPI Patient is a 83 year old female with a history of hypertension, diabetes type 2 , who presents to the ED today complaining of dysuria that began this afternoon. Patient denies any nausea vomiting. She states she has slight low/ flank back pain. Patient denies any fever. Denies any personal history of kidney stones. Denies any hematuria. Denies any nausea vomiting. (CUCO NG APRN) Review of Systems Review of Systems Constitutional: Denies fever or chills [] Eyes: Denies change in visual acuity, redness, or eye pain [] HENT: Denies nasal congestion or sore throat [] Respiratory: Denies cough or shortness of breath [] Cardiovascular: No additional information not addressed in HPI [] GI: Denies abdominal pain, nausea, vomiting, bloody stools or diarrhea [] : Reports dysuria, denies hematuria [] Musculoskeletal: Denies back pain or joint pain [] Integument: Denies rash or skin lesions [] Neurologic: Denies headache, focal weakness or sensory changes [] All other systems were reviewed and found to be within normal limits, except as documented in this note. (CUCO NG APRN) Current Medications Current Medications Current Medications Medications (Trade) Dose Ordered Sig/[facility] Start Time Stop Time Status Last Admin Dose Admin Acetaminophen (Tylenol) 500 mg 1X ONCE 08/01/18 21:15 08/01/18 21:16 DC Cephalexin HCl (Keflex) 500 mg 1X ONCE 08/01/18 21:15 08/01/18 21:16 DC (MANE PERDUE DO) Allergies Allergies Allergies Coded Allergies Type Severity Reaction Last Updated Verified lisinopril Allergy Mild cough 10/18/13 Yes (MANE PERDUE DO) Physical Exam Physical Exam Constitutional: Well developed, well nourished, no acute distress, non-toxic appearance. [] HENT: Normocephalic, atraumatic, bilateral external ears normal, oropharynx moist, no oral exudates, nose normal. [] Eyes: PERRLA, EOMI, conjunctiva normal, no discharge. [] Neck: Normal range of motion, no tenderness, supple, no stridor. [] Cardiovascular:Heart rate regular rhythm, no murmur [] Lungs & Thorax: Bilateral breath sounds clear to auscultation [] Abdomen: Bowel sounds normal, soft, no tenderness, no masses, no pulsatile masses. [] Skin: Warm, dry, no erythema, no rash. [] Back: No tenderness, no CVA tenderness. [] Extremities: No tenderness, no cyanosis, no clubbing, ROM intact, no edema. [] Neurologic: Alert and oriented X 3, normal motor function, normal sensory function, no focal deficits noted. [] Psychologic: Affect normal, judgement normal, mood normal. [] (CUCO NG APRN) Current Patient Data Vital Signs Vital Signs Date Time Temp Pulse Resp B/P (MAP) Pulse Ox O2 Delivery O2 Flow Rate FiO2 08/01/18 20:23 97.8 82 16 170/74 (106) 99 Room Air 97.8 (MANE PERDUE DO) Lab Values Laboratory Tests Test 08/01/18 20:08 Urine Color Yellow Urine Clarity Clear Urine pH 7.5 Urine Specific [place] <=1.005 Urine Protein 30 mg/dL (NEG-TRACE) Urine Glucose (UA) Negative mg/dL (NEG) Urine Ketones (Stick) Negative mg/dL (NEG) Urine Blood Large (NEG) Urine Nitrite Negative (NEG) Urine Bilirubin Negative (NEG) Urine Urobilinogen Dipstick 0.2 mg/dL (0.2 mg/dL) Urine Leukocyte Esterase Large (NEG) Urine RBC 0 /HPF (0-2) Urine WBC 11-20 /HPF (0-4) Urine Squamous Epithelial Cells Occ /LPF Urine Bacteria Few /HPF (0-FEW) (MANE PERDUE DO) EKG EKG [] (CUCO NG APRN) Radiology/Procedures Radiology/Procedures [] (CUCO NG APRN) Course & Med Decision Making Course & Med Decision Making Pertinent Labs and Imaging studies reviewed. (See chart for details) This is a 83-year-old female patient presenting to the ED today with dysuria, positive for UTI. Discharged with cephalexin. Instructed to push fluids. Follow- up with primary care doctor in 1-2 weeks as needed. (CUCO NG APRN) Dragon Disclaimer Dragon Disclaimer This electronic medical record was generated, in whole or in part, using a voice recognition dictation system. (CUCO NG APRN) Departure Departure Impression: Primary Impression: Urinary tract infection Disposition: HOME, SELF-CARE Condition: STABLE Referrals: LAZARUS TAYLOR MD (PCP) Follow-up in 1-2 weeks Patient Instructions: Urinary Tract Infection Additional Instructions: You were evaluated in the emergency room and were noted for urinary tract infection. We put you on antibiotics, ensure you take them until completed. Push fluids. Follow-up with your doctor in one week. Come back to the ED at any point symptoms worsen. Scripts Cephalexin (CEPHALEXIN) 500 Mg Tablet 1 TAB PO BID, #14 TAB Prov: CUCO NG APRN 08/01/18 Attending Signature Attending Signature I have reviewed the PA/METAL MINE INSPECTOR's note and plan of care. I was available for consultation as needed during the patient's visit in the emergency department. I agree with the clinical impression, plan, and disposition. (MANE PERUDE DO) Problem Qualifiers Primary Impression: Urinary tract infection Urinary tract infection type: site unspecified Hematuria presence: without hematuria Qualified Codes: N39.0 - Urinary tract infection, site not specified CUCO NG APRN Aug 01, 2018 21:05 MANE PERDUE DO Aug 02, 2018 04:28
[2018-08-01] MEDS ORDERED: CEPHALEXIN 250 MG CAPSULE. PO ONE (21:15)
[2018-08-01] MEDS ORDERED: ACETAMINOPHEN 500 MG TABLET PO ONE (21:15)
== END 2018-08-01 21:27 | disposition home or self-care (01) ==
LOC: ER 20:06
DX: N39.0 Urinary tract infection, site not specified (principal); I10 Essential (primary) hypertension; E11.9 Type 2 diabetes mellitus without complications; J45.909 Unspecified asthma, uncomplicated; Z90.710 Acquired absence of both cervix and uterus; Z88.8 Allergy status to other drugs, medicaments and biological substances
CPT/HCPCS: 81001; 87086; 87186; 99283

== ENCOUNTER 2018-12-05 08:28 | Emergency (ER) | payer MEDICARE ==
[~2018-12-05] VITALS: Ht 157.5 cm; Wt 47.8 kg
[~2018-12-05 08:28] MED LIST changes: +CEPH500T PO
[2018-12-05 08:50] LABS: BILIRUBIN,URINE NEGATIVE (NEG); CLARITY,URINE CLEAR; COLOR,URINE YELLOW; NITRITE,URINE NEGATIVE (NEG); PH,URINE 7.5; PROTEIN,URINE NEGATIVE (NEG-TRACE); UROBILINOGEN,URINE 0.2 mg/dL (0.2 mg/dL)
[2018-12-05] MEDS ORDERED: IV NORMAL SALINE 500ML BAG 500 ML IV ONE ×2 (09:00→11:00)
[2018-12-05 09:04] LABS: BACTERIA,URINE 0 /HPF (0-FEW); RBC,URINE 0 /HPF (0-2); SQUAMOUS EPITHELIAL CELL,UR FEW /LPF; WBC,URINE 0 /HPF (0-4)
--- NOTE | 2018-12-05 09:33 | PHYS DOC ---
Past Medical History Past Medical History: Asthma, Bronchitis, Diabetes-Type II, Hypertension (LILIA DRISCOLL APRN) Past Surgical History: Hysterectomy Additional Past Surgical Histo: REMOVED LESION LEFT BREAST, RIGHT CAROTID ARTERY (LILIA DRISCOLL APRN) Alcohol Use: None Drug Use: None (LILIA DRISCOLL APRN) Adult General Chief Complaint Chief Complaint: URINARY FREQUENCY HPI HPI Patient is a 83 year old AA female, accompanied by her family, who presents to the ER with complaints of increased urinary frequency and lower abdominal pain for the last 2 days. Pt reports dysuria and increased lower abdominal pain after urination, states it feels like she has a UTI. She denies any hematuria, back pain, fever, nausea, vomiting, diarrhea, or shortness of breath. Pt states she has felt fatigued and light headed. She also complains of fullness in her ears, frequent throat clearing, and an occasional dry cough. Currently, she rates her discomfort an 8/10 on the pain scale, there are no alleviating factors. She denies any chest pain, palpitations, or syncope. Pt also reports chronic pain in her left shoulder and left hip for the past year. (LILIA DRISCOLL APRN) Review of Systems Review of Systems Constitutional: Denies fever or chills [] Eyes: Denies change in visual acuity, redness, or eye pain [] HENT: Denies sore throat; reports nasal congestion, throat clearing, and pressure in ears Respiratory: Denies shortness of breath; see HPI Cardiovascular: No additional information not addressed in HPI [] GI: Denies nausea, vomiting, bloody stools or diarrhea; see HPI [] : See HPI Musculoskeletal: Denies back pain or joint pain [] Integument: Denies rash or skin lesions [] Neurologic: Denies headache, focal weakness or sensory changes [] Endocrine: Denies polyuria or polydipsia [] Complete systems were reviewed and found to be within normal limits, except as documented in this note. (LILIA DRISCOLL APRN) Current Medications Current Medications Current Medications Medications (Trade) Dose Ordered Sig/Sai Start Time Stop Time Status Last Admin Dose Admin Info (CONTRAST GIVEN -- Rx MONITORING) 1 each PRN DAILY PRN 12/05/18 10:45 12/05/18 12:40 DC Iohexol (Omnipaque 300 Mg/ml) 60 ml 1X ONCE 12/05/18 10:30 12/05/18 10:31 DC Sodium Chloride 500 ml @ 500 mls/hr 1X ONCE 12/05/18 11:00 12/05/18 11:59 DC 12/05/18 11:08 500 MLS/HR (MANE PERDUE DO) Allergies Allergies Allergies Coded Allergies Type Severity Reaction Last Updated Verified Penicillins Allergy Intermediate "rash" 12/05/18 Yes lisinopril Adverse Reaction Intermediate cough 12/05/18 Yes (MANE PERDUE DO) Physical Exam Physical Exam Constitutional: Well developed, well nourished, no acute distress, non-toxic appearance. [] HENT: Normocephalic, atraumatic, bilateral external ears normal, bilateral TMs normal, posterior pharynx normal, oropharynx moist, no oral exudates, nose normal. [] Eyes: PERRLA, conjunctiva normal, no discharge. [] Neck: Normal range of motion, no tenderness, supple, no stridor. [] Cardiovascular:Heart rate regular rhythm, no murmur [] Lungs & Thorax: Bilateral breath sounds clear to auscultation, respirations even and unlabored, no distress [] Abdomen: Bowel sounds normal, soft, no masses, no pulsatile masses; lower abdominal and suprapubic TTP, no rebound or guarding Skin: Warm, dry, no erythema, no rash. [] Back: No tenderness Extremities: No cyanosis, no clubbing, ROM intact, no edema. [] Neurologic: Alert and oriented X 3, no focal deficits noted. [] Psychologic: Affect normal, judgement normal, mood normal. [] (LILIA DRISCOLL APRN) Current Patient Data Vital Signs Vital Signs Date Time Temp Pulse Resp B/P (MAP) Pulse Ox O2 Delivery O2 Flow Rate FiO2 12/05/18 11:44 72 18 161/69 (99) 99 Room Air 12/05/18 08:35 98.1 98.1 (MANE PERDUE DO) Lab Values Laboratory Tests Test 12/05/18 08:30 12/05/18 09:20 Urine Collection Type Unknown Urine Color Yellow Urine Clarity Clear Urine pH 7.5 Urine Specific Thurman 1.010 Urine Protein Negative mg/dL (NEG-TRACE) Urine Glucose (UA) Negative mg/dL (NEG) Urine Ketones (Stick) Negative mg/dL (NEG) Urine Blood Negative (NEG) Urine Nitrite Negative (NEG) Urine Bilirubin Negative (NEG) Urine Urobilinogen Dipstick 0.2 mg/dL (0.2 mg/dL) Urine Leukocyte Esterase Negative (NEG) Urine RBC 0 /HPF (0-2) Urine WBC 0 /HPF (0-4) Urine Squamous Epithelial Cells Few /LPF Urine Bacteria 0 /HPF (0-FEW) White Blood Count 5.0 x10^3/uL (4.0-11.0) Red Blood Count 3.59 x10^6/uL (3.50-5.40) Hemoglobin 11.1 g/dL (12.0-15.5) L Hematocrit 32.6 % (36.0-47.0) L Mean Corpuscular Volume 91 fL (79-100) Mean Corpuscular Hemoglobin 31 pg (25-35) Mean Corpuscular Hemoglobin Concent 34 g/dL (31-37) Red Cell Distribution Width 13.6 % (11.5-14.5) Platelet Count 194 x10^3/uL (140-400) Neutrophils (%) (Auto) 50 % (31-73) Lymphocytes (%) (Auto) 34 % (24-48) Monocytes (%) (Auto) 7 % (0-9) Eosinophils (%) (Auto) 9 % (0-3) H Basophils (%) (Auto) 1 % (0-3) Neutrophils # (Auto) 2.5 x10^3uL (1.8-7.7) Lymphocytes # (Auto) 1.7 x10^3/uL (1.0-4.8) Monocytes # (Auto) 0.3 x10^3/uL (0.0-1.1) Eosinophils # (Auto) 0.4 x10^3/uL (0.0-0.7) Basophils # (Auto) 0.1 x10^3/uL (0.0-0.2) Prothrombin Time 12.9 SEC (11.7-14.0) Prothrombin Time INR 1.0 (0.8-1.1) Sodium Level 137 mmol/L (136-145) Potassium Level 3.9 mmol/L (3.5-5.1) Chloride Level 101 mmol/L (98-107) Carbon Dioxide Level 29 mmol/L (21-32) Anion Gap 7 (6-14) Blood Urea Nitrogen 22 mg/dL (7-20) H Creatinine 1.1 mg/dL (0.6-1.0) H Estimated GFR (Cockcroft-Gault) 57.1 BUN/Creatinine Ratio 20 (6-20) Glucose Level 150 mg/dL (70-99) H Calcium Level 10.0 mg/dL (8.5-10.1) Magnesium Level 2.1 mg/dL (1.8-2.4) Total Bilirubin 0.7 mg/dL (0.2-1.0) Aspartate Amino Transferase (AST) 18 U/L (15-37) Alanine Aminotransferase (ALT) 22 U/L (14-59) Alkaline Phosphatase 69 U/L (46-116) Creatine Kinase 101 U/L (26-192) Creatine Kinase MB (Mass) 1.0 ng/mL (0.0-3.6) Creatine Kinase MB Relative Index 1.0 % (0-4) Troponin I Quantitative < 0.017 ng/mL (0.000-0.055) Total Protein 8.0 g/dL (6.4-8.2) Albumin 3.8 g/dL (3.4-5.0) Albumin/Globulin Ratio 0.9 (1.0-1.7) L Lipase 323 U/L (73-393) Laboratory Tests 12/05/18 09:20 Laboratory Tests 12/05/18 09:20 (MANE PERDUE DO) EKG EKG 0930- SR with leftward axis, rate of 72, no STEMI, T-wave inversion in lead III, read by Dr. Perdue.[] (LILIA DRISCOLL APRN) Radiology/Procedures Radiology/Procedures PROCEDURE: CT ABD PELV W/ IV CONTRST ONLY PQRS Compliance Statement: One or more of the following individualized dose reduction techniques were utilized for this examination: 1. Automated exposure control 2. Adjustment of the mA and/or kV according to patient size 3. Use of iterative reconstruction technique CT abdomen/pelvis with contrast 12/05/2018 9:12 AM INDICATION: Lower abdominal pain COMPARISON: CT abdomen/pelvis March 11, 2016 TECHNIQUE: Multiple axial CT images of the abdomen and pelvis were obtained after the intravenous administration of 75 mL nonionic contrast. Coronal and sagittal reformats are provided. FINDINGS: There is a stable 2.5 mm solid noncalcified pulmonary nodule in the medial left lower lobe, presumed benign given stability from prior examination of March 11, 2016. Heart size is borderline enlarged. Small hiatal hernia. Liver, spleen, bilateral adrenal glands, pancreas and gallbladder are normal in appearance. Main pancreatic duct is dilated measuring up to 3 mm. Common bile duct measures up to 10 mm. Abdominal aorta is normal in caliber with dense calcified atheromatous plaque. No pathologically enlarged lymph nodes are identified in abdomen and pelvis. There is trace pelvic free fluid. No free intraperitoneal air. Moderate amount of stool is noted throughout the colon. Small and large bowel are normal in caliber. There is no evidence for bowel obstruction. There are no pericolonic inflammatory changes. A normal, nondilated appendix is visualized without adjacent inflammatory changes. Simple appearing bilateral renal cysts are identified. Cysts measure up to 2.0 cm in the interpolar right kidney and 0.8 cm in the inferior pole the left kidney. Small extrarenal pelvis noted bilaterally. No hydronephrosis. No suspicious renal mass. Kidneys enhance symmetrically. Urinary bladder is within normal limits given degree of distention. No suspicious adnexal mass. No suspicious osseous abnormality. IMPRESSION: 1. Mild dilatation of the common bile duct and main pancreatic duct. No definite obstructive etiology is identified. If there is persistent clinical concern or elevated biliary enzymes, further evaluation with MRCP may be of benefit. 2. No evidence for bowel obstruction or inflammation. Moderate amount of stool is noted throughout the colon. [] (LILIA DRISCOLL APRN) Course & Med Decision Making Course & Med Decision Making Pertinent Labs and Imaging studies reviewed. (See chart for details) dx: dysuria, constipation ddx: UTI, pyelonephritis, SBO, ACS CBC, mild anemia with pt hx of; CMP unremarkable, troponin and CK-MB negative. EKG no STEMI or acute changes. UA negative for infection. CT- Moderate amount of stool is noted throughout the colon. Pt was given 1L NS in the ER. Pt reports feeling better and states she would like to go home. Instructed to increase clear fluids and follow up with PCP in 1-2 days pt and family verbalized an understanding of home care, medications, follow-up, and return to ED instructions and was in agreement with the plan of care. [] [] (LILIA DRISCOLL APRN) Dragon Disclaimer Dragon Disclaimer This electronic medical record was generated, in whole or in part, using a voice recognition dictation system. (LILIA DRISCOLL APRN) Departure Departure Impression: Primary Impression: Dysuria Additional Impression: Constipation Disposition: 01 HOME, SELF-CARE Condition: STABLE Referrals: LAZARUS TAYLOR MD (PCP) Patient Instructions: Constipation, Adult, [id number], Dysuria-Brief Additional Instructions: Increase clear fluids, follow up with your primary care doctor in 1-2 days if symptoms persist, return to the ER if symptoms worsen. Attending Signature Attending Signature I have reviewed the PA/CAR GROOMER's note and plan of care. I was available for cons ultation as needed during the patient's visit in the emergency department. I agree with the clinical impression, plan, and disposition. (MANE PERDUE DO) Problem Qualifiers Additional Impression: Constipation Constipation type: unspecified constipation type Qualified Codes: K59.00 - Constipation, unspecified LILIA DRISCOLL APRN Dec 05, 2018 09:33 MANE PERDUE DO Dec 08, 2018 06:18
[2018-12-05 09:34] LABS: BASO # 0.1 x10^3/uL (0.0-0.2); BASO % 1 % (0-3); EOS # 0.4 x10^3/uL (0.0-0.7); EOS % 9 % (0-3); HEMATOCRIT 32.6 % (36.0-47.0); HEMOGLOBIN 11.1 g/dL (12.0-15.5); LYMPH # 1.7 x10^3/uL (1.0-4.8); LYMPH % 34 % (24-48); MEAN CORPUSCULAR HEMOGLOBIN 31 pg (25-35); MEAN CORPUSCULAR HGB CONC 34 g/dL (31-37); MEAN CORPUSCULAR VOLUME 91 fL (79-100); MONO # 0.3 x10^3/uL (0.0-1.1); MONO % 7 % (0-9); NEUT # 2.5 x10^3uL (1.8-7.7); NEUT % 50 % (31-73); PLATELET COUNT 194 x10^3/uL (140-400); RED BLOOD COUNT 3.59 x10^6/uL (3.50-5.40); RED CELL DISTRIBUTION WIDTH 13.6 % (11.5-14.5)
[2018-12-05 09:47] LABS: CREATININE 1.1 mg/dL (0.6-1.0); GFR 57.1; MAGNESIUM 2.1 mg/dL (1.8-2.4); POTASSIUM 3.9 mmol/L (3.5-5.1)
[2018-12-05 09:53] LABS: ALBUMIN 3.8 g/dL (3.4-5.0); ALBUMIN/GLOBULIN RATIO 0.9 (1.0-1.7); TOTAL BILIRUBIN 0.7 mg/dL (0.2-1.0)
[2018-12-05] MEDS ORDERED: IOHEXOL 300 MG/ML 100ML VIAL. IV ONE (10:30)
[2018-12-05 10:36] LABS: PROTHROMBIN TIME PATIENT 12.9 SEC (11.7-14.0)
[2018-12-05] MEDS ORDERED: CONTRAST GIVEN. MC PRN (10:45)
--- NOTE | 2018-12-05 10:46 | EKG ---
[facility] [address] [place] [address] Test Date: 2018-12-05 Test Time: 09:30:52 Pat Name: DEENA ASHTON Department: Room: Gender: F Regional Sales Coordinator: : 1935 Requested By: LILIA DRISCOLL Order Number: [id number] Reading MD: Measurements Intervals [place] Rate: 71 P: 43 IN: 168 QRS: -28 QRSD: 74 T: 9 QT: 404 QTc: 443 Interpretive Statements SINUS RHYTHM LEFTWARD AXIS CONSIDER LEFT VENTRICULAR HYPERTROPHY NON SPECIFIC T ABNORMALITY POSSIBLY ABNORMAL ECG No previous ECG available for comparison
--- NOTE | 2018-12-05 10:52 | RAD ---
PQRS Compliance Statement: One or more of the following individualized dose reduction techniques were utilized for this examination: 1. Automated exposure control 2. Adjustment of the mA and/or kV according to patient size 3. Use of iterative reconstruction technique CT abdomen/pelvis with contrast 12/05/2018 9:12 AM INDICATION: Lower abdominal pain COMPARISON: CT abdomen/pelvis March 11, 2016 TECHNIQUE: Multiple axial CT images of the abdomen and pelvis were obtained after the intravenous administration of 75 mL nonionic contrast. Coronal and sagittal reformats are provided. FINDINGS: There is a stable 2.5 mm solid noncalcified pulmonary nodule in the medial left lower lobe, presumed benign given stability from prior examination of March 11, 2016. Heart size is borderline enlarged. Small hiatal hernia. Liver, spleen, bilateral adrenal glands, pancreas and gallbladder are normal in appearance. Main pancreatic duct is dilated measuring up to 3 mm. Common bile duct measures up to 10 mm. Abdominal aorta is normal in caliber with dense calcified atheromatous plaque. No pathologically enlarged lymph nodes are identified in abdomen and pelvis. There is trace pelvic free fluid. No free intraperitoneal air. Moderate amount of stool is noted throughout the colon. Small and large bowel are normal in caliber. There is no evidence for bowel obstruction. There are no pericolonic inflammatory changes. A normal, nondilated appendix is visualized without adjacent inflammatory changes. Simple appearing bilateral renal cysts are identified. Cysts measure up to 2.0 cm in the interpolar right kidney and 0.8 cm in the inferior pole the left kidney. Small extrarenal pelvis noted bilaterally. No hydronephrosis. No suspicious renal mass. Kidneys enhance symmetrically. Urinary bladder is within normal limits given degree of distention. No suspicious adnexal mass. No suspicious osseous abnormality. IMPRESSION: 1. Mild dilatation of the common bile duct and main pancreatic duct. No definite obstructive etiology is identified. If there is persistent clinical concern or elevated biliary enzymes, further evaluation with MRCP may be of benefit. 2. No evidence for bowel obstruction or inflammation. Moderate amount of stool is noted throughout the colon. Electronically signed by: Becki Elias MD (12/05/2018 10:49 AM) [id number]
[2018-12-05 11:44] VITALS: BP 161/69
== END 2018-12-05 12:25 | disposition home or self-care (01) ==
LOC: ER 08:28
DX: R30.0 Dysuria (principal); K59.00 Constipation, unspecified; R42 Dizziness and giddiness; R53.83 Other fatigue; R35.0 Frequency of micturition; R05 Cough; Z87.440 Personal history of urinary (tract) infections; E11.9 Type 2 diabetes mellitus without complications; I10 Essential (primary) hypertension; J45.909 Unspecified asthma, uncomplicated; Z90.710 Acquired absence of both cervix and uterus; Z88.0 Allergy status to penicillin; Z88.8 Allergy status to other drugs, medicaments and biological substances
CPT/HCPCS: 36415; 74177; 80053; 81001; 82553; 83690; 83735; 84484; 85025; 85610; 93005; 96360; 96361; 99285; J7040

== ENCOUNTER → 2019-01-17 | Outpatient (CLI) | payer MEDICARE ==
[~2019-01-17] MED LIST changes: +CONTRAST GIVEN. MC PRN; +IOHEXOL 240 MG/ML 50ML VIAL. PO ONE; +IOHEXOL 300 MG/ML 100ML VIAL. IV ONE
[2019-01-17 09:17] LABS: CREATININE 1.1 mg/dL (0.6-1.0); GFR 57.1
--- NOTE | 2019-01-17 10:59 | RAD ---
PQRS Compliance statement: One or more of the following individualized dose reduction techniques were utilized for this examination: 1. Automated exposure control. 2. Adjustment of the mA and/or kV according to patient size. 3. Use of iterative reconstruction technique. Indication:Right upper quadrant pain. TECHNIQUE: CT abdomen and pelvis with IV contrast with multiplanar reformats. COMPARISON: 12/05/2018. FINDINGS: Heart is normal in size. No pericardial or pleural effusion. Clear lung bases. Liver, spleen, gallbladder, adrenals within normal limits. Main pancreatic duct is dilated in the pancreatic head region measuring 6 mm, stable from previous exam. CBD is dilated measuring 1 cm. No apparent pancreatic head mass is seen. Bilateral simple appearing renal cysts are seen, the largest on the right side measuring 2.3 cm. No nephrolithiasis or hydronephrosis. No enlarged retroperitoneal or pelvic adenopathy. Mild to moderate diffuse atherosclerotic plaque in the abdominal aorta. No free pelvic fluid or ascites. No bowel obstruction. Moderate diffuse colonic stool burden. Normal appendix. Status post hysterectomy. Urinary bladder demonstrates no radiopaque stones. No suspicious bony lesion. IMPRESSION: Stable dilation of the CBD and main pancreatic duct in the pancreatic head region. No apparent pancreatic head mass seen. Although occult ampullary mass or stricture is not ruled out. Nonemergent MRI/MRCP with IV contrast is recommended. Electronically signed by: Rodríguez Austin DO (01/17/2019 10:56 AM) [facility]
== END | disposition home or self-care (01) ==
LOC: CT 08:51
PROVIDERS: ATTEND Internal Medicine Gastroenterology
DX: R10.11 Right upper quadrant pain (principal); I70.0 Atherosclerosis of aorta; I10 Essential (primary) hypertension; J44.9 Chronic obstructive pulmonary disease, unspecified; E11.9 Type 2 diabetes mellitus without complications; Z88.0 Allergy status to penicillin; Z88.8 Allergy status to other drugs, medicaments and biological substances; Z90.710 Acquired absence of both cervix and uterus; Z86.73 Personal history of transient ischemic attack (TIA), and cerebral infarction without residual deficits
CPT/HCPCS: 36415; 74177; 82565; 84520; Q9966; Q9967

== ENCOUNTER → 2019-01-29 | Outpatient (CLI) | payer MEDICARE ==
[~2019-01-29] MED LIST changes: -CONTRAST GIVEN. MC PRN; -IOHEXOL 240 MG/ML 50ML VIAL. PO ONE; -IOHEXOL 300 MG/ML 100ML VIAL. IV ONE
--- NOTE | 2019-01-29 11:58 | CARD ---
MR#: [id number] Date of Study: 01/29/2019 Ordering Physician: MYKEL MICHELLE, Referring Physician: MYKEL MICHELLE, Tech: Laurie Peoples JACK APPROVED REPORT EXAM: Two-dimensional and M-mode echocardiogram with Doppler and color Doppler. Other Information Quality : Good INDICATION Pulmonary Hypertention 2D DIMENSIONS RVDd2.7 (2.9-3.5cm)Left Atrium(2D)3.3 (1.6-4.0cm) IVSd0.9 (0.7-1.1cm)Aortic Root(2D)2.5 (2.0-3.7cm) LVDd4.2 (3.9-5.9cm)LVOT Diameter2.0 (1.8-2.4cm) PWd0.6 (0.7-1.1cm)LVDs2.6 (2.5-4.0cm) FS (%) 38.4 %SV54.1 ml LVEF(%)60.0 (>50%) Aortic Valve AoV Peak James.128.2cm/sAoV VTI29.6cm AO Peak GR.6.6mmHgLVOT Peak James.111.5cm/s AO Mean GR.4mmHgAVA (VMAX)2.63cm2 LOUISE (VTI)2.60cm2 Mitral Valve MV E Awakvvbi62.4cm/sMV DECEL [id number] MV A Zcjzuevj781.8cm/sE/A Ratio0.7 Tricuspid Valve TR P. Oxzvwubc192qu/sRAP NDFYYBBV7umIf TR Peak Gr.99lxCvWYTO00tnYh Pulmonary Vein S1 Vscnkfcl72.7cm/sD2 Gojhgpvl36.7cm/s LEFT VENTRICLE The left ventricle is normal size. There is normal left ventricular wall thickness. The left ventricu lar systolic function is normal and the ejection fraction is within normal range. The Ejection Fracti on is 55-60%. There is normal LV segmental wall motion. Transmitral Doppler flow pattern is Grade I-a bnormal relaxation pattern. RIGHT VENTRICLE The right ventricle is normal size. The right ventricular systolic function is normal. ATRIA The left atrium size is normal. The right atrium size is normal. The interatrial septum is intact wit h no evidence for an atrial septal defect or patent foramen ovale as noted on 2-D or Doppler imaging. AORTIC VALVE The aortic valve is calcified but opens well. Doppler and Color Flow revealed no significant aortic r egurgitation. There is no significant aortic valvular stenosis. MITRAL VALVE The mitral valve is calcified but opens well. There is no evidence of mitral valve prolapse. There is no mitral valve stenosis. Doppler and Color-flow revealed mild mitral regurgitation. TRICUSPID VALVE The tricuspid valve is normal in structure and function. Doppler and Color Flow revealed mild to mode rate tricuspid regurgitation.There is moderate pulmonary hypertension.The PA pressure was estimated a t 53 mmHg. There is no tricuspid valve stenosis. PULMONIC VALVE Doppler and Color Flow revealed no pulmonic valvular regurgitation. There is no pulmonic valvular kathi nosis. GREAT VESSELS The aortic root is normal in size. The ascending aorta is normal in size. The IVC is normal in size a nd collapses >50% with inspiration. PERICARDIAL EFFUSION There is no evidence of significant pericardial effusion. Critical Notification Critical Value: No <Conclusion> The left ventricular systolic function is normal and the ejection fraction is within normal range. Th e Ejection Fraction is 55-60%. There is normal LV segmental wall motion. Doppler and Color Flow revealed mild to moderate tricuspid regurgitation.There is moderate pulmonary hypertension.The PA pressure was estimated at 53 mmHg. Signed by : Korey Ellis, Electronically Approved : 01/29/2019 11:57:40
--- NOTE | 2019-01-29 12:41 | RAD ---
MR#: [id number] Date of Study: 01/29/2019 Ordering Physician: MYKEL MICHELLE, Referring Physician: MYKEL MICHELLE, Tech: Harpreet Joaquin MBA, RDMS, RVT, RDCS, RTR APPROVED REPORT Patient Location: OUT-PATIENT Laterality:Bilateral Indications carotid artery disease Doppler Spectral Velocity Analysis Right Left pCCA 81/11 cm/spCCA 108/15 cm/s mCCA 83/13 cm/smCCA 109/17 cm/s dCCA 95/16 cm/sdCCA 108/18 cm/s Bulb 68/13 cm/sBulb 96/19 cm/s ECA 85/ cm/sECA 124/ cm/s pICA 80/19 cm/spICA 112/18 cm/s Ranjit 110/23 cm/smICA 111/26 cm/s dICA 131/24 cm/sdICA 100/19 cm/s Vert. 65/ cm/sVert. 108/ cm/s Subcl. 175/ cm/sSubcl. 137/ cm/s ICA/CCA 1.38ICA/CCA 1.04 Findings Grayscale images of the bilateral common carotid, external and internal carotid vessels demonstrates mild diffuse intimal hyperplasia. Based on velocity criteria there is likely a moderate 50-69% stenosis involving the right distal inte rnal carotid artery. Otherwise the rest of the carotid architecture does not have any significant obs tructive disease bilaterally. The bilateral vertebral velocities are antegrade. Bilateral ICA to CCA ratios are within normal limits. Critical Notification Critical Value: No <Conclusion> 1. Moderate right-sided carotid disease. Signed by : Korey Ellis, Electronically Approved : 01/29/2019 12:41:19
== END | disposition home or self-care (01) ==
LOC: ECHO 08:47
PROVIDERS: ATTEND Internal Medicine Cardiovascular Disease
DX: I08.3 Combined rheumatic disorders of mitral, aortic and tricuspid valves (principal); I65.23 Occlusion and stenosis of bilateral carotid arteries; I77.9 Disorder of arteries and arterioles, unspecified; I27.20 Pulmonary hypertension, unspecified; I77.3 Arterial fibromuscular dysplasia
CPT/HCPCS: 93306; 93880

== ENCOUNTER → 2019-02-28 | Outpatient (CLI) | payer MEDICARE ==
--- NOTE | 2019-03-01 18:27 | RAD ---
DATE: 02/28/2019 EXAM: MAMMO DENNIS SCREENING BILATERAL HISTORY: Routine screening COMPARISON: 01/04/2016, 01/10/2017, 01/11/2018 mammographic exams This study was interpreted with the benefit of Computerized Aided Detection (CAD). Breast Density: SCATTERED The breast parenchyma shows scattered fibroglandular densities. Breast parenchyma level B. FINDINGS: Vascular calcifications are evident. No suspicious calcifications or distortion. No mass. IMPRESSION: Stable BI-RADS CATEGORY: 1 NEGATIVE RECOMMENDED FOLLOW-UP: 12M 12 MONTH FOLLOW-UP PQRS compliance statement: Patient information was entered into a reminder system with a target due date for the next mammogram. Mammography is a sensitive method for finding small breast cancers, but it does not detect them all and is not a substitute for careful clinical examination. A negative mammogram does not negate a clinically suspicious finding and should not result in delay in biopsying a clinically suspicious abnormality. "Our facility is accredited by the [employer] Mammography Program."
== END | disposition home or self-care (01) ==
LOC: MAMMO 11:02
PROVIDERS: ATTEND Nurse Practitioner Family
DX: Z12.31 Encounter for screening mammogram for malignant neoplasm of breast (principal); N64.89 Other specified disorders of breast
CPT/HCPCS: 77063; 77067

== ENCOUNTER → 2020-03-17 | Outpatient (CLI) | payer MEDICARE ==
[~2020-03-17] MED LIST changes: -ALEN70TA6 PO; +ALEN70TA60 PO
--- NOTE | 2020-03-18 09:09 | RAD ---
DATE: 03/25/2020 EXAM: MAMMO DENNIS SCREENING BILATERAL HISTORY: Screening , 02/28/2019 COMPARISON: 12/05/2011, 12/11/2012, 12/04/2013, 12/31/2014, 01/11/2018 This study was interpreted with the benefit of Computerized Aided Detection (CAD). Breast Density: HETERO The breast parenchyma is heterogenously dense, which could reduce sensitivity of mammography. Breast parenchyma level C. FINDINGS: No mass, suspicious calcification, or architectural distortion in either breast. There are benign calcifications bilaterally. IMPRESSION: No evidence of malignancy. BI-RADS CATEGORY: 2 BENIGN FINDING(S) RECOMMENDED FOLLOW-UP: 12M 12 MONTH FOLLOW-UP PQRS compliance statement: Patient information was entered into a reminder system with a target due date 03/18/2021 for the next mammogram. Mammography is a sensitive method for finding small breast cancers, but it does not detect them all and is not a substitute for careful clinical examination. A negative mammogram does not negate a clinically suspicious finding and should not result in delay in biopsying a clinically suspicious abnormality. "Our facility is accredited by the [employer] Mammography Program."
== END ==
LOC: MAMMO 10:55
PROVIDERS: ATTEND Nurse Practitioner Family
DX: Z12.31 Encounter for screening mammogram for malignant neoplasm of breast (principal)
CPT/HCPCS: 77063; 77067

== ENCOUNTER → 2021-04-13 | Outpatient (CLI) | payer MEDICARE ==
[~2021-04-13] MED LIST changes: -ACYC200C PO; +ACYC200C84 PO; -ALEN70TA60 PO; +ALEN70TA71 PO
--- NOTE | 2021-04-13 17:30 | RAD ---
MR#: [id number] Date of Study: 04/13/2021 Ordering Physician: MYKEL MICHELLE, Referring Physician: MYKEL MICHELLE, Tech: Sagrario Ríos, JUAN, RVT, RTR APPROVED REPORT Patient Location: OUT-PATIENT Laterality:Bilateral Indications Carotid Artery Disease Risk Factors CAD, Doppler Spectral Velocity Analysis Right Left pCCA 66/9 cm/spCCA 112/11 cm/s mCCA 81/9 cm/smCCA 189/22 cm/s dCCA 122/16 cm/sdCCA 122/14 cm/s ECA 100/8 cm/sECA 99/18 cm/s pICA 77/17 cm/spICA 121/17 cm/s Ranjit 140/20 cm/smICA 124/27 cm/s dICA 161/28 cm/sdICA 149/33 cm/s Vert. 81/9 cm/sVert. 113/19 cm/s ICA/CCA 1.32ICA/CCA 1.33 Findings Grayscale images the bilateral carotid vessels demonstrate mild to moderate diffuse atherosclerosis. On the right side based on velocity criteria there is moderate 50 to 69% stenosis in the distal inter nal carotid artery. Antegrade vertebral velocities are noted with normal ICA to CCA ratios. On the left side there are elevated velocities in the mid common carotid artery likely related to tor tuosity suggestive of moderate stenosis. There is also moderate 50 to 69% stenosis based on velocity criteria in the distal internal carotid artery with normal ICA to CCA ratios. Antegrade vertebral v elocities are noted. Critical Notification Critical Value: No <Conclusion> 1. Mild to moderate bilateral carotid occlusive disease. Signed by : Korey Ellis, Electronically Approved : 04/13/2021 17:30:02
--- NOTE | 2021-04-13 20:07 | CARD ---
MR#: [id number] Date of Study: 04/13/2021 Ordering Physician: MYKEL MICHELLE, Referring Physician: MYKEL MICHELLE, Tech: Nupur Fitzgerald [facility] APPROVED REPORT EXAM: Two-dimensional and M-mode echocardiogram with Doppler and color Doppler. Other Information Quality : GoodHR: 65bpm Rhythm : NSR INDICATION Chest Pain RISK FACTORS Hypertension Hyperlipidemia Diabetes 2D DIMENSIONS RVDd3.2 (2.9-3.5cm)Left Atrium(2D)3.1 (1.6-4.0cm) IVSd1.2 (0.7-1.1cm)Aortic Root(2D)2.7 (2.0-3.7cm) LVDd3.8 (3.9-5.9cm)LVOT Diameter1.8 (1.8-2.4cm) PWd1.2 (0.7-1.1cm)LVDs1.7 (2.5-4.0cm) FS (%) 55.7 %SV55.2 ml LVEF(%)86.8 (>50%) Aortic Valve AoV Peak James.124.0cm/sAoV VTI28.0cm AO Peak GR.6.1mmHgLVOT Peak James.105.0cm/s AO Mean GR.3mmHgAVA (VMAX)2.21cm2 Mitral Valve MV E Dssrglum03.8cm/sMV DECEL KAHH955ct MV A Ijcrbemi388.4cm/sE/A Ratio0.9 Pulmonary Valve PV Peak Ywbfoevj090.4cm/s Tricuspid Valve TR P. Nbjklkwu344na/sTR Peak Gr.38mmHg LEFT VENTRICLE The left ventricle is normal size. There is mild concentric left ventricular hypertrophy. The left ve ntricular systolic function is normal and the ejection fraction is within normal range. Estimated eje ction fraction 60-65%. There is normal LV segmental wall motion. Transmitral Doppler flow pattern is Grade I-abnormal relaxation pattern. RIGHT VENTRICLE The right ventricle is normal size. There is normal right ventricular wall thickness. The right ventr icular systolic function is normal. ATRIA The left atrium size is normal. The right atrium size is normal. The interatrial septum is intact wit h no evidence for an atrial septal defect or patent foramen ovale as noted on 2-D or Doppler imaging. AORTIC VALVE The aortic valve is normal in structure and function. Doppler and Color Flow revealed no significant aortic regurgitation. There is no significant aortic valvular stenosis. MITRAL VALVE The mitral valve is normal in structure and function. There is no evidence of mitral valve prolapse. There is no mitral valve stenosis. Doppler and Color-flow revealed mild mitral regurgitation. TRICUSPID VALVE The tricuspid valve is normal in structure and function. Doppler and Color Flow revealed moderate tri cuspid regurgitation. Estimated PAP 42 mmHg. There is no tricuspid valve stenosis. PULMONIC VALVE Doppler and Color Flow revealed trace pulmonic valvular regurgitation. There is no pulmonic valvular stenosis. GREAT VESSELS The aortic root is normal in size. The ascending aorta is normal in size. The IVC is normal in size a nd collapses >50% with inspiration. PERICARDIAL EFFUSION There is no evidence of significant pericardial effusion. Critical Notification Critical Value: No <Conclusion> The left ventricular systolic function is normal and the ejection fraction is within normal range. E stimated ejection fraction 60-65%. There is normal LV segmental wall motion. Doppler and Color Flow revealed moderate tricuspid regurgitation. Estimated PAP 42 mmHg. Signed by : Korey Ellis, Electronically Approved : 04/13/2021 20:06:26
== END ==
LOC: US 09:24
PROVIDERS: ATTEND Internal Medicine Cardiovascular Disease
DX: I08.1 Rheumatic disorders of both mitral and tricuspid valves (principal); I65.23 Occlusion and stenosis of bilateral carotid arteries; I11.9 Hypertensive heart disease without heart failure; I27.20 Pulmonary hypertension, unspecified; I77.9 Disorder of arteries and arterioles, unspecified
CPT/HCPCS: 93306; 93880

== ENCOUNTER → 2021-04-28 | Outpatient (CLI) | payer MEDICARE ==
--- NOTE | 2021-04-28 14:09 | RAD ---
BILATERAL DIGITAL SCREENING 2-D MAMMOGRAM INDICATION: Routine screening. COMPARISON: 03/17/2020, 02/28/2019, 01/11/2018, 01/10/2017 Interpretation was made using CAD. FINDINGS: Breast Density: There are scattered areas of fibroglandular density. RIGHT BREAST: No suspicious masses, calcifications or areas of architectural distortion are seen. [place] ign vascular calcifications. LEFT BREAST: No suspicious masses, calcifications or areas of architectural distortion are seen. Randall gn vascular calcifications. IMPRESSION: 1. No imaging evidence of malignancy. ASSESSMENT: BI-RADS 2: Benign. RECOMMENDATION: Routine annual screening mammogram. The facility will notify the patient of the results via mail. Patient information will be entered int o the mammography reminder system with a target recall date for the next mammogram. A reminder letter will be generated by the facility. Electronically signed by: Ben Goddard MD (04/28/2021 2:07 PM) [id number]
== END ==
LOC: MAMMO 13:04
PROVIDERS: ATTEND Family Medicine
DX: Z12.31 Encounter for screening mammogram for malignant neoplasm of breast (principal)
CPT/HCPCS: 77067